=== PATIENT | female | born 1940 | race Caucasian/White ===

== ENCOUNTER 2020-01-04 17:21 | Emergency (ER) | payer MEDICARE, SELFPAY ==
--- NOTE | ~2020-01-04 | XR_ITS ---
EXAMINATION: XR wrist RT min 3V DATE: 01/04/2020 20:38 INDICATION: Right wrist pain TECHNIQUE: Posteroanterior, ulnar deviation, oblique, and lateral views of the right wrist were obtai raulito. COMPARISON: None available FINDINGS: The bones are osteopenic which limits the sensitivity for fracture however none is seen. Th ere is no dislocation or subluxation. There is moderate osteoarthritis at the first carpometacarpal j oint and first interphalangeal joint. The soft tissues are unremarkable. IMPRESSION: 1. No acute osseous abnormality. Reviewed, dictated and finalized at location A.
--- NOTE | ~2020-01-04 | CT_ITS ---
EXAMINATION: CT brain wo con INDICATION: Headache, head injury COMPARISON: None TECHNIQUE: Standard unenhanced head CT. The dose-length product (DLP) was 605.33 mGy-cm. The mA was a djusted according to patient size. Iterative reconstruction technique was employed. FINDINGS: There is no acute intraparenchymal hemorrhage. No evidence of mass lesion. No evidence of a cute infarction. There is mild periventricular and subcortical hypodensity probably related to small vessel ischemic disease. There is mild prominence of the sulci and ventricles related to cerebral atr ophy. Intracranial calcified cerebral atherosclerosis is noted. There are no extra-axial collections. There is no mass effect or midline shift. The orbits and soft tissues are unremarkable. There is a small right mastoid effusion. The paranasal sinuses are well aerated. There is frontal skull hyperost osis (hyperostosis frontalis interna), a normal variant. IMPRESSION: 1. No acute intracranial abnormality. 2. Age related findings. Reviewed, dictated and finalized at location A.
--- NOTE | ~2020-01-04 | XR_ITS ---
EXAMINATION: XR wrist LT min 3V DATE: 01/04/2020 18:02 INDICATION: Left wrist pain, initial encounter TECHNIQUE: Posteroanterior, ulnar deviation, oblique, and lateral views of the left wrist were obtain ed. COMPARISON: None available FINDINGS: There is an acute, traumatic, closed, comminuted, intra-articular fracture of the distal ra dius. There are approximately 3 mm of anterior displacement of the largest distal fracture fragment r elative to the shaft of the radius. Soft tissue swelling surrounds the fracture. An acute ulnar stylo id avulsion is noted. There is moderate osteoarthritis at the first carpometacarpal joint. IMPRESSION: 1. Comminuted intra-articular fracture of the distal radius, ulnar styloid avulsion. Reviewed, dictated and finalized at location A. IMPRESSION: 1. Comminuted intra-articular fracture of the distal radius, ulnar styloid avul leela.
[2020-01-04 17:29] VITALS: BP 225/96; PULSE 66; RESP 18; TEMP 37; O2SAT 97
[2020-01-04 20:57] VITALS: BP 188/85; PULSE 57; RESP 16; TEMP 37; O2SAT 98
--- NOTE | 2020-01-04 21:09 | ED.UPPEXIN ---
HPI - Extremity Injury (Upper) General Chief Complaint: Extremity Injury, Upper Stated Complaint: left wrist injury Time Seen by Provider: 01/04/20 18:55 Source: patient Mode of arrival: ambulatory Limitations: no limitations History of Present Illness HPI narrative: This is a 79-year-old female that presents the emergency department for left wrist pain after an injury today. Reports she was walking outside and tripped over the pavement and fell forward. Reports left wrist pain and swelling. Also reports a laceration to her lower lip and 2 avulsed teeth. Denies loss of consciousness. Also reports a superficial abrasion to the right wrist. Unsure of her last tetanus vaccine. Denies prodromal symptoms, headache, vision changes, vomiting, numbness or weakness. Related Data Home Medications Medication Instructions Recorded Confirmed aspirin [Aspir-81] 81 mg PO 3XW 08/14/19 08/20/19 atorvastatin 20 mg PO HS 08/14/19 08/20/19 calcium citrate-vitamin D3 3 tablet PO QAM 08/14/19 08/14/19 [Citracal Regular] citalopram 20 mg PO QAM 08/14/19 08/20/19 docusate sodium 100 mg PO HS 08/14/19 08/14/19 estradiol 0.5 mg PO 3XW 08/14/19 08/20/19 fluticasone propionate [Flonase 1 spray INTRANASAL DAILY PRN 08/14/19 08/20/19 Allergy Relief] [id number]-[id number] 149-hyal ac 2 tablet PO DAILY 08/14/19 08/14/19 [Glucos Chond Cplx Advanced] lorazepam 0.5 mg PO HS PRN 08/14/19 08/20/19 losartan 25 mg PO DAILY 08/14/19 08/20/19 melatonin 10 mg PO HS PRN 08/14/19 08/20/19 multivitamin [Multiple Vitamins] 1 tablet PO DAILY 08/14/19 08/20/19 omega 8-jxm-cow-fish oil [Fish Oil] 1 cap PO DAILY 08/14/19 08/20/19 simethicone [Gas-X Extra Strength] 125 mg PO DAILY 08/14/19 08/20/19 Allergies Allergy/AdvReac Type Severity Reaction Status Date / Time Sulfa (Sulfonamide Allergy Mild Rash Verified 01/04/20 20:47 Antibiotics) Review of Systems Review of Systems: Narrative: CONSTITUTIONAL: Denies fever EYES: Denies visual changes GASTROINTESTINAL: Denies vomiting SKIN: Reports lacerations MUSCULOSKELETAL: Reports joint pain, and myalgia. NEUROLOGIC: Denies headache, numbness, or weakness. All systems reviewed & are unremarkable except as noted in HPI and below PMFSH Past Medical History Medical History (Updated 01/04/20 @ 21:20 by Nati Forrester PA-C) Anxiety Hyperlipidemia Hypertension Exam Narrative: Exam Narrative: GENERAL: Elderly, well-nourished, and in no acute distress. HEAD: Normocephalic. Lower lip with 2 small (0.5cm), superficial lacerations EYES: PERRLA and EOMI. ENT: Nares clear, no rhinorrhea or epistaxis. Mucous membranes moist. Oropharynx without tonsillar hypertrophy exudate or other lesions. Bilateral TMs pearly maradiaga non-bulging. Teeth number 6 and 7 avulsed. 7 appears to have been a false tooth NECK: Supple. No adenopathy or masses. No midline spinal tenderness CHEST: Clear to auscultation. No respiratory distress. No wheezes rales or rhonchi HEART: Regular rate and rhythm. No murmur heard. Normal peripheral pulses. BACK: No midline spinal tenderness EXTREMITIES: Normal range of motion. Left wrist with moderate edema. Right wrist with superficial abrasions to the palmar surface SKIN: Warm, dry, no rash. NEURO: No focal deficits. Alert and oriented x3. Cranial nerves II through XII grossly intact PSYCH: Normal mood and affect Course Consultations Consultation #1: Spoke with Dr. Cox about patient and work-up will follow-up in clinic. Date: 01/04/20 Time: 21:15 Vital Signs Vital signs: Vital Signs Temperature 98.6 F 01/04/20 17:29 Pulse Rate 66 01/04/20 17:29 Respiratory Rate 18 01/04/20 17:29 Blood Pressure 225/96 H 01/04/20 17:29 Pulse Oximetry 97 01/04/20 17:29 Temperature 98.6 F 01/04/20 17:29 Pulse Rate 66 01/04/20 17:29 Respiratory Rate 18 01/04/20 17:29 Blood Pressure 225/96 H 01/04/20 17:29 Pulse Oximetry 97 01/04/20 17:29 Procedures Orthopedic Spli
[2020-01-04] MEDS: TETANUS,DIPHTHERIA,AC PERTUSSIS ADULT (0.5 ML) BOOSTRIX IM (21:37)
== END 2020-01-04 21:44 | disposition home or self-care (01) ==
PROVIDERS: Emergency Provider Emergency Medicine
DX: S52.572A Other intraarticular fracture of lower end of left radius, initial encounter for closed fracture (principal); S52.612A Displaced fracture of left ulna styloid process, initial encounter for closed fracture; F41.9 Anxiety disorder, unspecified; E78.5 Hyperlipidemia, unspecified; I10 Essential (primary) hypertension; Z79.82 Long term (current) use of aspirin; Z23 Encounter for immunization
CPT/HCPCS: 29125; 70450; 73110; 90471; 90715; 99284; A9270

== ENCOUNTER 2020-01-06 18:03 | Emergency (ER) | payer MEDICARE, SELFPAY ==
[2020-01-06 18:22] VITALS: BP 156/64; PULSE 66; RESP 16; TEMP 37; O2SAT 98
--- NOTE | 2020-01-06 18:26 | ED.GENADULT ---
HPI - General Adult General Chief complaint: Extremity Injury, Upper <LENA Brand Last Filed: 01/06/20 18:29> Stated complaint: L ARM PAIN/SWELLING +WRIST FRACTURE <LENA Brand Last Filed: 01/06/20 18:29> Time Seen by Provider: 01/06/20 18:25 <LENA Brand Last Filed: 01/06/20 18:29> Source: patient <LENA Brand Last Filed: 01/06/20 18:29> Mode of arrival: ambulatory <LENA Brand Last Filed: 01/06/20 18:29> Limitations: no limitations <LENA Brand Last Filed: 01/06/20 18:29> History of Present Illness HPI narrative: Patient is a 79-year-old female who presents to emergency department for evaluation of left wrist pain and hand swelling patient fractured the wrist on Saturday was splinted and notes that she has developed some swelling in the hand and was concerned patient denies new injury or trauma any loss of feeling or function in the hand that is new or different since the fracture. Patient has no other complaints and is scheduled to see her orthopedist on Saturday <LENA Brand Last Filed: 01/06/20 18:29> Related Data Home medications: Home Medications Medication Instructions Recorded Confirmed aspirin [Aspir-81] 81 mg PO 3XW 08/14/19 08/20/19 atorvastatin 20 mg PO HS 08/14/19 08/20/19 calcium citrate-vitamin D3 3 tablet PO QAM 08/14/19 08/14/19 [Citracal Regular] citalopram 20 mg PO QAM 08/14/19 08/20/19 docusate sodium 100 mg PO HS 08/14/19 08/14/19 estradiol 0.5 mg PO 3XW 08/14/19 08/20/19 fluticasone propionate [Flonase 1 spray INTRANASAL DAILY PRN 08/14/19 08/20/19 Allergy Relief] gsrodheu-wnarn-zeu 149-hyal ac 2 tablet PO DAILY 08/14/19 08/14/19 [Glucos Chond Cplx Advanced] lorazepam 0.5 mg PO HS PRN 08/14/19 08/20/19 losartan 25 mg PO DAILY 08/14/19 08/20/19 melatonin 10 mg PO HS PRN 08/14/19 08/20/19 multivitamin [Multiple Vitamins] 1 tablet PO DAILY 08/14/19 08/20/19 omega 6-sed-txh-fish oil [Fish Oil] 1 cap PO DAILY 08/14/19 08/20/19 simethicone [Gas-X Extra Strength] 125 mg PO DAILY 08/14/19 08/20/19 <Juan F Hope PA-C - Last Filed: 01/06/20 18:29> Allergies/adverse reactions: Allergies Allergy/AdvReac Type Severity Reaction Status Date / Time Sulfa (Sulfonamide Allergy Mild Rash Verified 01/06/20 18:28 Antibiotics) <Juan F Hope PA-C - Last Filed: 01/06/20 18:29> Review of Systems Review of Systems: Narrative: CONSTITUTIONAL: Denies fever, chills, or sweats. SKIN: Positive for bruising and swelling MUSCULOSKELETAL: Positive for left wrist and hand pain NEUROLOGIC: Denies numbness, dizziness, or weakness. <Juan F Hope PA-C - Last Filed: 01/06/20 18:29> [facility] Past Medical History Medical History: Medical History Anxiety Hyperlipidemia Hypertension <Juan F Hope PA-C - Last Filed: 01/06/20 18:29> Social History Social History: Social History Gender identity (if verbalized by the patient): Female <Juan F Hope PA-C - Last Filed: 01/06/20 18:29> Exam Narrative: Exam Narrative: GENERAL: Well-appearing, well-nourished, and in no acute distress. HEAD: Normocephalic, atraumatic. EYES: PERRLA and EOMI. ENT: Nares clear, no rhinorrhea or epistaxis. Mucous membranes moist. EXTREMITIES: Patient with slight swelling and tenderness of the wrist and hand joint status post removal of her splint neurovascularly intact with capillary refill less than 2 seconds SKIN: Warm, dry, no rash. NEURO: No focal deficits. Alert and oriented x3. PSYCH: Normal mood and affect. <Juan F Hope PA-C - Last Filed: 01/06/20 18:29> Course Course Emergency Course: Patient in the room aware of case findings treatment plan and diagnosis agreeing to follow-up with her orthopedist this plan is felt appropriate for
== END 2020-01-06 18:47 | disposition home or self-care (01) ==
PROVIDERS: Emergency Provider Emergency Medicine; PCP Family Medicine
DX: S62.102A Fracture of unspecified carpal bone, left wrist, initial encounter for closed fracture (principal); F41.9 Anxiety disorder, unspecified; I10 Essential (primary) hypertension; E78.5 Hyperlipidemia, unspecified; X58.XXXA Exposure to other specified factors, initial encounter
CPT/HCPCS: 29125; 99284; A4565

== ENCOUNTER 2024-09-08 17:29 | Emergency (ER) | payer MEDICARE, SELFPAY ==
--- NOTE | ~2024-09-08 | CT_ITS ---
EXAMINATION: CT cervical spine wo con DATE: 09/08/2024 19:05 INDICATION: Fall. TECHNIQUE: Computed tomography (CT) of the cervical spine was performed without intravenous contrast. Automated exposure control and iterative reconstruction technique were employed. The dose-length pro duct was 164.78 mGy-cm. COMPARISON: None FINDINGS: There is kyphosis of cervical spine. There is 2 mm anterolisthesis of C4 on C5. Vertebral b saira heights are normal. There is mildly decreased disc height at C2-C3 and C4-C5 and moderately decre ased disc height at C5-C6 and C6-C7. The following disc levels are specifically discussed: C2-C3: There is mild left uncovertebral joint osteoarthritis. There is severe left facet joint osteoa rthritis. There is ankylosis of right facet joint with moderate hypertrophy. There is mild bilateral neural foraminal stenosis. There is no central canal stenosis. C3-C4: There is mild left uncovertebral joint osteoarthritis. There is severe bilateral facet joint o steoarthritis. There is mild bilateral neural foraminal stenosis. There is mild central canal stenosi s. C4-C5: There is mild bilateral uncovertebral joint osteoarthritis. There is mild right and severe lef t facet joint osteoarthritis. There is mild left neural foraminal stenosis. There is mild central can al stenosis. C5-C6: There is severe right and moderate left uncovertebral joint osteoarthritis. There is severe bi lateral facet joint osteoarthritis. There is mild right neural foraminal stenosis. There is mild cent ral canal stenosis. C6-C7: There is mild right and severe left uncovertebral joint osteoarthritis. There is moderate bila teral facet joint osteoarthritis. There is mild bilateral neural foraminal stenosis. There is mild ce ntral canal stenosis. C7-T1: There is no uncovertebral joint osteoarthritis. There is severe right and mild left facet join t osteoarthritis. There is mild right neural foraminal stenosis. There is no central canal stenosis. IMPRESSION: 1. No fracture. 2. Moderate cervical spondylosis. Reviewed, dictated and finalized at location A. [employer]
--- NOTE | ~2024-09-08 | CT_ITS ---
EXAMINATION: CT brain wo con DATE: 09/08/2024 19:05 INDICATION: Fall. TECHNIQUE: Computed tomography (CT) of the head was performed without intravenous contrast. The mA wa s adjusted according to patient size. Iterative reconstruction technique was employed. The dose-lengt h product was 605.33 mGy-cm. COMPARISON: Head CT 01/04/2020 FINDINGS: There are scattered areas of low attenuation in the cerebral white matter. There is no intr acranial hemorrhage, acute infarction, or abnormal intracranial mass lesion. The ventricles are deyanira l in size. There is mild mucosal thickening in the paranasal sinuses. There are likely changes of ocu lar lens replacement surgeries. There is a small right mastoid effusion. IMPRESSION: 1. Stable moderate nonspecific cerebral white matter disease, which likely represents chronic small v essel ischemic disease. Reviewed, dictated and finalized at location A. RE D' IMPRESSION: 1. Stable moderate nonspecific cerebral white matter disease, which likely repr esents chronic small vessel ischemic disease.
[2024-09-08 17:32] VITALS: BP 177/69; PULSE 71; RESP 20; TEMP 36.4; O2SAT 100
--- OUTSIDE RECORDS SUMMARY | 2024-09-08 17:32 | XMS_ITS | Data Portability ---
Author Organization [place] [facility], Main Office Address [address] [place] [address] Care Team Providers Care Reprographics Technician Name Role Phone CAMILLA CIRO Primary Care Provider SAMPSONYUEEW Referring Provider Assessment Encounter Date Assessment Date Assessment LastModified by Organization Details LastModified Time 03/20/2023 03/20/2023 HPI: Patient returns. It has been over a year and half since we have seen her for her left knee. Last several months has got little bit more sore. Chief complaint is that if she sits for longer periods of time when she gets up it is little bit difficult to straighten the knee out. It does take her a little bit before she is comfortable walking. She has not severe pain with ambulation. She does not decrease activities avoid activities due to the knee. She has been noticing a little bit more symptoms in the knee. She had cortisone injection in June of 2021 and wished to have another 1 today. Physical exam: 82-year-old female very alert pleasant. She appears younger than her stated age. She has a trace effusion in the left knee. She has a mild varus alignment. Range of motion is from 0-135 degrees. Mild tenderness over the medial joint line to palpation. No swelling in either lower extremity. No pain patellofemoral grind. Hip range of motion is full without discomfort. No lateral joint line tenderness. After ChloraPrep was used on skin 20 mg Kenalog and 3 cc of 0.5% ropivacaine was injected into the left knee. Risk infection discussed. Impression: 82-year-old female who has severe medial compartment osteoarthritis in left knee. Her symptoms overall are mild. She had cortisone injection in June of 2021 and wished to have another 1 today. A reminder she can repeat these often as every 3 months. She will keep that in mind. She will call when she feels she needs additional injection. 20 minutes was spent in treatment patient more half of this in [id number] conversation [email or web address] Not available 03/20/2023 16:13:00 Plan of Treatment Reminders Order Date Submit Date Provider Last Modified By Organization Details Last Modified Time Details Appointments None recorded. Lab None recorded. Referral None recorded. Procedures injection/a spiration joint/bursa (PROC) - in office procedure, administere d by provider 2022 023 In-Office Order, Internal Use Only DO Not Attach Compendium DO Not Attach Compendium, Do Not Delete/merge, [id number] 15:44:49 Surgeries None recorded. Imaging XR, knee 2022 023 [email or web address] [facility], [address], [place], [address], 3 16:13:36 Medication Orders Kenalog 10 mg/mL suspension for injection [address]/[facility] [id number], [address] [place], [address], 3 16:13:36 ropivacaine (PF) 5 mg/mL (0.5 %) injection solution [id number], [address] [place], [address], 3 16:13:36 Patient TargetsNo targets recorded. Patient InstructionsNo instructions recorded. Reason for Referral None Reported. Results Created Date Observation Date Name Description Value Unit Range Abnormal Flag Note LastModifiedBy Organization Detail LastModifiedTime 07/03/20 21 XR, knee No observ ation record ed. [id number] [facility] [place] [address], [place], [address], 10/10/2022 14:11:33 03/20/20 23 XR, knee No observ ation record ed. [email or web address] [facility] [place] [address], [place], [address], 03/20/2023 16:09:51 Result Notes None recorded. Problems Name Problem SNOMED Code Status Onset Date Resolution Date Notes Provider Name and Address Organization Details Recorded Time Osteoarthr itis of knee 785336410 Active Not Available [facility] 3 14:09:34 Osteoarthr itis 158394007 Active Not Available [facility] 3 14:09:34 Pain of left knee joint 1675535226640 07 Active 2022 SCOOBY Esteves, [place] - [facility] [employer] [facility] 15:03:53 Problem Notes None recorded. Procedures Surgical History Date Name Laterality Status Provider Name and Address Organization Details Recorded Time procedure on fallopian tube completed Not Available [facility] 10/10/2022 14:09:09 Hysterectomy completed Not Available [facility] 10/10[facility] 14:09:09 procedure on wrist completed Not Available [facility] 10/10/2022 14:09:09 Imaging Results Imaging Date Name Status LastModified by Organiz ation Details LastModified Time 07/03/2021 XR, knee completed [id number] [facility] [place] [address], [place], [address], 10/10/2022 14:11:33 03/20/2023 XR, knee completed [email or web address] [facility] [place] [address], [place], [address], 03/20/2023 16:09:51 Procedure Notes None recorded. Medical Equipment None Reported. Allergies Allergen ID Allergen Name Allergen Category Reaction Reaction Severity Criticality Documentation Date Start Date Code Code System Note Provider Name and Address Organization Details Recorded Time 36059 Substance with sulfonami de structure and antibacte rial mechanism of action (substanc e) medicatio n Not available Not available Not available 10/10/2022 58538 8003 SNOMED Not Available [facility] 3 14:11:31 Medications Name Sig Start Date Stop Date Status Note LastModified by Organization Details LastModified Time tolterodine ER 2 mg capsule,ext ended release 24 hr 07/24 completed Not Available Not Available Not Available amoxicillin 500 mg capsule TAKE 4 CAPSULES BY MOUTH 1 HOUR PRIOR TO DENTAL APPOINTME NT active Not Available Not Available No t Available atorvastati n 20 mg tablet TAKE 1 TABLET BY MOUTH EVERY DAY active Not Available Not Available No t Available lisinopril 20 mg-hydrochl orothiazide 12.5 mg tablet TAKE 1 TABLET BY MOUTH TWICE A DAY 07/03 completed Not Available Not Available Not Available azithromyci n 250 mg tablet 07/03 completed Not Available Not Available Not Available fluconazole 150 mg tablet active Not Available Not Available Not Available tolterodine ER 4 mg capsule,ext ended release 24 hr TAKE ONE CAPSULE BY MOUTH EVERY DAY 07/24 completed Not Available Not Available Not Available hydrocodone 5 mg-acetamin ophen 325 mg tablet 07/03 completed Not Available Not Available Not Available sertraline 100 mg tablet TAKE 1 TABLET BY MOUTH EVERY DAY active Not Available Not Available No t Available clindamycin HCl 150 mg capsule 07/24 completed Not Available Not Available Not Available fexofenadin e 180 mg tablet TAKE 1 TABLET BY MOUTH EVERY DAY active Not Available Not Available No t Available simvastatin 40 mg tablet TAKE 1 TABLET BY MOUTH EVERYDAY AT BEDTIME 07/03 completed Not Available Not Available Not Available amoxicillin 875 mg tablet 07/24 completed Not Available Not Available Not Available citalopram 20 mg tablet TAKE 1 TABLET BY MOUTH EVERY DAY 07/03 completed Not Available Not Available Not Available lorazepam 0.5 mg tablet TAKE 1 TABLET BY MOUTH EVERY DAY AT BEDTIME NEEDED active Not Available Not Available No t Available Kenalog 10 mg/mL suspension for injection in office 2022 active [facility]: [phone] Not Available Not Available Not Available cephalexin 500 mg capsule TAKE 1 CAPSULE BY MOUTH EVERY 8 HOURS FOR 10 DAYS active Not Available Not Available No t Available montelukast 10 mg tablet 07/24 completed Not Available Not Available Not Available hydrochloro thiazide 25 mg tablet TAKE 1 TABLET BY MOUTH EVERY DAY active Not Available Not Available No t Available estradiol 0.5 mg tablet 07/03 completed Not Available Not Available Not Available methylpredn isolone 4 mg tablets in a dose pack TAKE 6 TABLETS ON DAY 1 DIRECTED ON PACKAGE AND DECREASE BY 1 TAB EACH DAY FOR A TOTAL OF 6 DAYS active Not Available Not Available No t Available oxybutynin chloride 5 mg tablet 07/24 completed Not Available Not Available Not Available losartan 100 mg tablet TAKE 1 TABLET BY MOUTH EVERY DAY active Not Available Not Available No t Available fluticasone propionate 50 mcg/actuati on nasal spray,suspe nsion SPRAY 1 SPRAY INTO EACH NOSTRIL EVERY DAY active Not Available Not Available No t Available sertraline 50 mg tablet 07/03 completed Not Available Not Available Not Available naproxen 500 mg tablet 07/24 completed Not Available Not Available Not Available amoxicillin 500 mg-potassiu m clavulanate 125 mg tablet TK 1 T PO Q 8 HOURS UNTIL GONE 07/24 completed Not Available Not Available Not Available nitrofurant oin monohydrate /macrocryst als 100 mg capsule TAKE 1 CAPSULE BY MOUTH TWICE A DAY active Not Available Not Available No t Available solifenacin 5 mg tablet TAKE 1 TABLET BY MOUTH EVERY DAY active Not Available Not Available No t Available chlorhexidi ne gluconate 0.12 % mouthwash 07/24 completed Not Available Not Available Not Available melatonin 2020 active Not Available Not Available Not Avai lable aspirin 2020 active Not Available Not Available Not Avai lable multivitami n 2020 active Not Available Not Available Not Avai lable lidocaine (PF) 10 mg/mL (1 %) injection solution In office injection administe red by the provider active [facility]: [phone] Not Available Not Available Not Available GaviLyte-N 420 gram oral solution 07/03 completed Not Available Not Available Not Available ropivacaine (PF) 5 mg/mL (0.5 %) injection solution in office 2022 active [facility] [phone] Not Available Not Available Not Available Fluzone High-Dose (PF) 180 mcg/0.5 mL intramuscul ar syringe TO BE ADMINISTE RED BY PHARMACIS T FOR IMMUNIZAT ION 07/24 completed Not Available Not Available Not Available Shingrix (PF) 50 mcg/0.5 mL intramuscul ar suspension, kit 07/03 completed Not Available Not Available Not Available Fluzone High-Dose (PF) 180 mcg/0.5 mL intramuscul ar syringe TO BE ADMINISTE RED BY PHARMACIS T FOR IMMUNIZAT ION 07/24 completed Not Available Not Available Not Available Fluzone High-Dose (PF) 180 mcg/0.5 mL intramuscul ar syringe TO BE ADMINISTE RED BY PHARMACIS T FOR IMMUNIZAT ION 07/03 completed Not Available Not Available Not Available Vitals Date Recorded Body mass index (BMI) Body height Body weight Provider Name and Address Organization Details Last Updated DateTime 07/03/2021 27.9 kg/m2 149.86 cm 98268.75 g Not Available [facility] 10/10/2022 14:09:15 Date Recorded Body height Body mass index (BMI) Body weight Provider Name and Address Organization Details Last Updated DateTime 03/20/2023 149.86 cm 27.7 kg/m2 22694.15 g SOCOBY Esteves [place] [facility] [employer] [facility] 03/20/2023 15:08:13 Social History Question Answer Notes LastModified by Organizat ion Details LastModified Time Tobacco Smoking Status Never Smoker Not Available [facility] 10/10/2022 14:09:06 What Is Your Level Of Alcohol Consumption? Occasional [id number] Information not available 10/10/2022 Sex: Unknown Functional Status None recorded. Mental Status None recorded. Family History Relationship Description Onset Age of this Age Resolved Age Notes LastModified by Organization Details LastModified Time Mother Family history of malignant neoplasm [id number] Not available 10/10/2022 14:09:09 Daughter Hypertensive disorder [id number] Not available 10/10/2022 14:09:09 Medical History Condition Response BLINDNESS N KIDNEY STONES N MRSA N CARPAL TUNNEL SYNDROME N LUNG DISEASE/DISORDER N HISTORY OF DRUG ABUSE N RADIATION / CHEMOTHERAPY N COPD N SPORTS INJURY N ANKLE PAIN N BLOOD DISEASES N SCHIZOPHRENIA N SHINGLES N BOWEL PROBLEMS N SHOULDER PAIN N DEPRESSION (INCLUDING POST ) N STROKE/TIA N KNEE PAIN N ULCERS N BENIGN PROSTATIC HYPERPLASIA N OBESITY N GERD/NAUSEA N ANEURYSM N URINARY/BLADDER/KIDNEY PROBLEMS Y CORONARY ARTERY DISEASE (CAD) N ADDICTION CONCERNS N USE OF BLOOD THINNERS N SKIN PROBLEMS N EMPHYSEMA N MUSCLE,JOINT OR BONE PROBLEMS N DVT N STOMACH ULCERS N BLOOD CLOTS N USE OF NSAIDS N CONCUSSION OR SPINAL TRAUMA N NEUROPATHY N AIDS/HIV N FRACTURES N ELBOW PAIN N HYPERTENSION Y TOURETTE'S N ANXIETY DISORDER N Metal allergy N BLOOD TRANSFUSION N ANEMIA/BLOOD DISORDER N BIPOLAR DISORDER N BRONCHITIS N OSTEOARTHRITIS N TUBERCULOSIS N FOOT PROBLEM N HEART VALVE DISORDERS N ALLERGIES/HAYFEVER N SOFT TISSUE INJURY N INFECTIOUS DISEASE N HEART ARRHYTHMIA N INSOMNIA N RHEUMATOID ARTHRITIS N HIGH CHOLESTEROL / HYPERLIPIDEMIA N EDEMA N CHRONIC PAIN SYNDROME N CAROTID BLOCKAGE N BACK / NECK PROBLEMS N HAVE YOU BEEN HOSPITALIZED OR SEEN IN [facility] IN THE PAST YEAR ? N BURSITIS N HERNIATED DISC N DIALYSIS N FIBROMYALGIA N OSTEOPOROSIS N ARTHRITIS Y NO SIGNIFICANT PAST MEDICAL HISTORY N PERIPHERAL NEUROPATHY N DIABETES, TYPE N HEARTBURN / REFLUX N HEPATITIS / LIVER DISEASE N GOUT N SLEEP DISORDER N ALZHEIMER'S DISEASE N HERPES N SEIZURES/EPILEPSY N HEADACHES/MIGRAINES N VASCULAR DISEASE N HIP PAIN N Blood Disorder N DIZZINESS N HEAD TRAUMA OR INJURY N HEART DISEASE/HEART PROBLEMS N MULTIPLE SCLEROSIS N CARDIAC ARRHYTHMIA N CANCER: SPECIFY N ANESTHESIA COMPLICATIONS N ATRIAL FIBRILLATION N AUTOIMMUNE DISEASE N Gynecological HistoryNo gynecological history recorded. Obstetrics History GPAL:G 0 P 0 0 0 0 Past Encounters Encounter ID Performer Location Encounter Start Date Encounter Closed Date Diagnosis/Indication Diagnosis SNOMED-CT Code Diagnosis ICD10 Code Diagnosis Note [id number] [facility] [place] [address] [address] 07/03/2021 00:00:00 07/03/2021 15:40:10 [id number] MARILYN Flor [facility] [place] [address] [facility] [address] [address] 03/20/2023 14:58:49 03/20/2023 16:06:08 Pain of left knee joint [id number] 19481 M25.562 Health Concerns Section Related Observation LastModified by Organization Detai ls LastModified Time None Recorded Concern Status LastModified by Organization Details LastModified Time None Recorded Advance Directives Directive None Recorded Payers Encounter Date Sequence Insurance Name Policy Number Policy Salas Covered Member ID Salas Member ID Guarantor Name 03/20/2023 1 [place] Cl Blount [id number] Cl Blount 03/20/2023 2 [employer] SU[employer] - [employer] (MEDICARE SUPPLEMENT) Cl Blount [id number] Cl Blount OBGyn Episode No OBEpisode recorded.
--- OUTSIDE RECORDS SUMMARY | 2024-09-08 17:32 | XMS_ITS | Clinical Summary ---
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 Name Role Phone Korey Coleman MD Primary Care Provider + Allergies Active Allergy Reactions Criticality Noted Date Comments Sulfa (Sulfonamide Antibiotics) Rash Medium Medications LORazepam (ATIVAN) 0.5 mg tablet 0.5 mg Active aspirin 81 mg enteric coated tablet Take 81 mg by mouth every morning Stopped two weeks ago Active atorvastatin (LIPITOR) 20 mg tablet Take 20 mg by mouth nightly Active losartan (COZAAR) 25 mg tablet 25 mg daily Active acetaminophen (TYLENOL) 500 mg tablet Take 500 mg by mouth every 6 (six) hours as needed for pain Active ibuprofen (ADVIL,MOTRIN) 400 mg tablet Take 600 mg by mouth every 6 (six) hours as needed for pain Stopped taking about 5 days ago Active estradioL (ESTRACE) 0.5 mg tablet estradiol 0.5 mg tablet TAKE 1 TABLET BY MOUTH EVERY OTHER DAY Active sertraline (ZOLOFT) 50 mg tablet Take 50 mg by mouth daily 1 Active cephalexin (KEFLEX) 500 mg capsule TAKE 1 CAPSULE BY MOUTH EVERY 8 HOURS FOR 10 DAYS 2 Active fluconazole (DIFLUCAN) 150 mg tablet fluconazole 150 mg tablet Active hydroCHLOROthia zide (HYDRODIURIL) 25 mg tablet Take 25 mg by mouth daily 2 Active methylPREDNISol one (MEDROL DOSEPACK) 4 mg Dosepack TAKE 6 TABLETS ON DAY 1 DIRECTED ON PACKAGE AND DECREASE BY 1 TAB EACH DAY FOR A TOTAL OF 6 DAYS 2 Active Hospital, Clinic, or Other Facility Administered Medication Ordered Dose Route Frequency Start Date End Date Status [facility] atorvastatin (rrAD) tablet 20 mgIndications:Research study patient 20 mg oral Daily 02/06/2019 Active [facility] losartan (rrAD) tablet 25 mgIndications:Research study patient 25 mg oral Daily 02/06/2019 Active [facility] losartan (rrAD) tablet 25 mgIndications:Research study patient 25 mg oral Daily 03/12/2019 Active [facility] atorvastatin (rrAD) tablet 20 mgIndications:Research study patient 20 mg oral Daily 03/12/2019 Active [facility] atorvastatin (rrAD) tablet 20 mgIndications:Research study patient 20 mg oral Daily 04/15/2019 Active [facility] losartan (rrAD) tablet 25 mgIndications:Research study patient 25 mg oral Daily 04/15/2019 Active [facility] atorvastatin (rrAD) tablet 20 mgIndications:Research study patient 20 mg oral Daily 05/06/2019 Active [facility] losartan (rrAD) tablet 25 mgIndications:Research study patient 25 mg oral Daily 05/06/2019 Active [facility] losartan (rrAD) tablet 25 mgIndications:Research study patient 25 mg oral Daily 08/14/2019 Active [facility] atorvastatin (rrAD) tablet 20 mgIndications:Research study patient 20 mg oral Daily 08/14/2019 Active [facility] losartan (rrAD) tablet 25 mgIndications:Research study patient 25 mg oral Daily 10/28/2019 Active [facility] atorvastatin (rrAD) tablet 20 mgIndications:Research study patient 20 mg oral Daily 10/28/2019 Active [facility] losartan (rrAD) tablet 25 mgIndications:Research study patient 25 mg oral Daily 12/22/2019 Active [facility] atorvastatin (rrAD) tablet 20 mgIndications:Research study patient 20 mg oral Daily 12/22/2019 Active [facility] losartan (rrAD) tablet 25 mgIndications:Research study patient 25 mg oral Daily 03/17/2020 Active [facility] atorvastatin (rrAD) tablet 20 mgIndications:Research study patient 20 mg oral Daily 03/17/2020 Active [facility] losartan (rrAD) tablet 25 mgIndications:Research study patient 25 mg oral Daily 05/31/2020 Active [facility] atorvastatin (rrAD) tablet 20 mgIndications:Research study patient 20 mg oral Daily 05/31/2020 Active [facility] losartan (rrAD) tablet 50 mgIndications:Research study patient 50 mg oral Daily 08/18/2020 Active [facility] atorvastatin (rrAD) tablet 20 mgIndications:Research study patient 20 mg oral Daily 08/18/2020 Active [facility] losartan (rrAD) tablet 100 mgIndications:Research study patient 100 mg oral Daily 10/03/2020 Active [facility] losartan (rrAD) tablet 100 mgIndications:Research study patient 100 mg oral Daily 12/27/2020 Active [facility] atorvastatin (rrAD) tablet 20 mgIndications:Research study patient 20 mg oral Daily 12/27/2020 Active [facility] losartan (rrAD) tablet 100 mgIndications:Research study patient 100 mg oral Daily 02/17/2021 Active [facility] atorvastatin (rrAD) tablet 20 mgIndications:Research study patient 20 mg oral Daily 02/17/2021 Active Active Problems Problem Noted Date Diagnosed Date Snoring 03/02/2021 Assessment & Plan (03/02/2021 1:59 PM CDT): The patient has primary snoring. She will continue to try to maintain an adequate weight and regular activities of daily living. Primary insomnia 11/28/2020 Assessment & Plan (11/28/2020 11:26 AM CDT): The patient sometimes has difficulty re- initiating sleep because she is waking up with 4 episodes of nocturia most nights. REM sleep behavior disorder 11/28/2020 Assessment & Plan (03/02/2021 2:01 PM CDT): There was only 18 minutes of REM sleep during the nocturnal PSG and there is no evidence of REM sleep without atonia. The patient did fall out of bed 1 time in the last 6 months but has been using melatonin. She recently ran out of melatonin and will restart melatonin at 5 mg at bedtime. I did inform her of the possibility of developing neurodegenerative disorders if indeed she does have RBD. However, I saw no evidence of REM sleep without atonia on the sleep study. She will follow-up here in 6 months. Closed Keane's fracture of left radius 0 Overview (01/12/2020): Added automatically from request for surgery [id number] Sensorineural hearing loss ( SNHL) of left ear with restricted hearing of right ear 07/07/2018 Unspecified urinary incontinence 09/23/2015 Breast lump 07/26/2014 Essential hypertension 07/26/2014 Malaise and fatigue 02/01/2014 Single major depressive episode, moderate 2012 Benign essential hypertension 07/17/2012 Family history of colonic polyps 07/17/2012 Generalized anxiety disorder 07/17/2012 Counseling for estrogen replacement therapy 01/2012 Hyperlipidemia 07/17/2012 Localized, primary osteoarthritis 07/17/2012 Osteoarthritis of knee 07/17/2012 Urinary urgency 07/17/2012 Hormone replacement therapy 07/17/2012 Immunizations Name Administration Dates Next Due Pfizer SARS-CoV-2 Monovalent Vaccination (12+ Yrs) PURPLE 10/07/2020,09/16/2020 Surgical History Surgery Date Site/Laterality Comments HYSTERECTOMY Hysterectomy - (Added by TW Conv) OOPHORECTOMY Oophorectomy - (Added by TW Conv) CATARACT EXTRACTION Cataract Surgery - (Added by TW Conv) COLONOSCOPY BREAST BIOPSY Right Medical History Medical History Date Comments Personal history of other di seases of the circulatory system History of hypertension - (A dded by TW Conv) Hypertension Arthritis High cholesterol Bladder troubles Hearing trouble Seasonal allergies Anxiety Family History Medical History Relation Name Comments Asthma Brother Heart attack Father Heart disease Father Colon cancer Mother Malignant Neopl asm, Colon - (Added by TW Conv) Asthma Sister 1 Fibromyalgia Sister 1 OCD Sister 2 Anesthesia problems Neg Hx Relation Name Status Comments Brother Alive Father Mother Sister 1 Alive Sister 2 Alive Social History Tobacco Use Types Packs/Day Years Used Date Smoking Tobacco: Never Smokeless Tobacco: Never Alcohol Use Standard Drinks/Week Comments Yes 0 (1 standard drink = 0.6 oz pur e alcohol) rarely Comments No Sex and Gender Information Value Date Recorded Sex Assigned at Not on file 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 Gender Identity Not on file Sexual Orientation Not on file Obstetrics History Para Term AB IAB SAB Ectopic Multiple Livin g Live Births 2 2 2 2 2 Date Outcome GA Total Labor Labor/2nd/3rd Weight Sex Type Anes PTL Bri A1 A5 Name Clin Term Living Term Living Last Filed Vital Signs Vital Sign Reading Time Taken Comments Blood Pressure 130/70 03/02/2021 1:32 PM CDT Pulse 65 03/02/2021 1:32 PM CDT Temperature 36.5 ??C (97.7 ??F) 03/02/2021 1:32 PM CD T Respiratory Rate 16 03/02/2021 1:32 PM CDT Oxygen Saturation 98% 03/02/2021 1:32 PM CDT Inhaled Oxygen Concentration - - Weight 62.6 kg (138 lb) 03/02/2021 1:32 PM CDT Height 157.5 cm (5' 2 ) 03/02/2021 1:32 PM CDT Body Mass Index 25.24 03/02/2021 1:32 PM CDT Plan of Treatment Health Maintenance Due Date Last Done Comments Depression Screening 1942 Hepatitis B Screening 1960 Pneumococcal vaccine 65+ (2 of 2 - PPSV23 or PCV20) 10/08/2017 10/08/2016 Fall Risk Assessment 01/12/2021 01/13/2020 Well Visit 65+ 03/16/2021 03/16/2020 Covid-19 Vaccine (2023-2 5 season) 2024 12/13/2021, 07/07/2021, 10/07/2020, Additional history exists Influenza Vaccine (#1) 2024 , 05/07/2019, 06/06/2018, Additional history exists Osteoporosis Screening-Bone Density Scan 04/23/2025 04/23/2023, 10/05/2020, 04/08/2017 DTaP/Tdap/Td Vaccine (2 - Td or Tdap) 11/06/2028 11/06/2018, 08/08/1998 Zoster Vaccine Completed 10/13/2019, 05/07/2019 Medical Devices Implanted Type Area Regional Sales Leader Device Identifier Shelf Expiration Date Model / Serial / Lot [employer] A-4750.31 Aptus Trilock [id number] 10 Hole Left Distal Volar Radius Narrow - [id number] Implanted:Qty: 1 on 01/13/2020 by Stefan Owen MD at [facility] Left: Radius [employer] A-4750.31 / / [employer] A-5700.12 Aptus 2.5mm 12mm Cortical Screw Bone - [id number] Implanted:Qty: 1 on 01/13/2020 by Stefan Owen MD at [facility] Left: Radius [employer] A-5700.12 / / [employer] A-5750.20 2.5mm 20mm Lock Cortical Screw Bone - [id number] Implanted:Qty: 2 on 01/13/2020 by Stefan Owen MD at [facility] Left: Radius [employer] A-5750.20 / / [employer] A-5700.18 Aptus 2.5mm 18mm Cortical Screw Bone Titanium - [id number] Implanted:Qty: 1 on 01/13/2020 by Stefan Owen MD at [facility] Left: Radius [employer] A-5700.18 / / [employer] A-5750.08 Screw Bone 2.5mm 8mm Lock - [id number] Implanted:Qty: 1 on 01/13/2020 by Stefan Owen MD at [facility] Left: Radius [employer] A-5750.08 / / [employer] A-5750.14 Aptus 2.5mm 14mm Lock Cortical Screw Bone - [id number] Implanted:Qty: 1 on 01/13/2020 by Stefan Owen MD at [facility] Left: Radius [employer] A-5750.14 / / Procedures Procedure Name Priority Date/Time Associated Diagnosis Comments DEXA AXIAL SKELETON BONE DENSITY 1 OR MORE SITES Schedule Routine, Read Routine (OP Routine) 04/23/2023 1:32 PM CDT Menopausal and female climacteric states Encounter for screening for osteoporosis from Last 3 Months or Most Recently Relevant to Health Maintenance Results * Dexa Axial Skeleton Bone Density 1 or 2 Site (04/23/2023 1:32 PM CDT) Anatomical Region Laterality Modality Body N/A Mammography 04/23/2023 2:41 PM CDT Narrative 04/23/2023 2:41 PM CDT EXAM DESCRIPTION: DEXA AXIAL SKELETON BONE DENSITY 1 OR MORE SITES REASON FOR STUDY: 83 y/o ?? year old ??F ??with given history of: ??Postmenopausal status. ??Patient takes vitamin-D and calcium. ??History of prior fracture. ? 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 Maximum height: ??61 ??inches ? Weight: ??130 ??pounds Risk factors: ??Prior fracture COMPARISON: None available FINDINGS: AP LUMBAR SPINE L1-L4: Total BMD is 1.047 g/cm2 T-score is 0.0 LEFT HIP: Total BMD is 0.900 g/cm2 T-score is -0.3 Femoral neck BMD is 0.735 g/cm2 T-score is -1.0 ?? FRAX: FRAX not reported due to T-scores of hip, femoral neck and/or spine being at or above -1.0 (Normal). IMPRESSION: Normal bone mass. REFERENCE: Bone mineral density: ? Normal (T-score above or = -1.0) ? Low bone mass ??(T-score between -1.0 and -2.5) replaces the previously used term osteopenia ? Osteoporosis (T-score = or below -2.5) Medical evaluation for secondary causes of low bone mineral density may be appropriate. FRAX is a World Health Organization validated fracture risk assessment tool that calculates a person's 10 year probability of a major osteoporosis related fracture and hip fracture. ??According to the National Osteoporosis Foundation guidelines, postmenopausal women and men age 50 or older with low bone mass and a 10 year probability of a major osteoporosis related fracture = or greater than 20% or a 10 year probability of a hip fracture = or greater than 3% should be considered for treatment. For further information, including treatment recommendations, please refer to the 2019 ISCD Official Positions (http://www.iscd.org) and the NOF's Clinician's Guide to Prevention and Treatment of Osteoporosis (http://www.nof.org/professionals/clinical-guidelines) THIS IS AN ELECTRONICALLY VERIFIED FINAL REPORT 04/23/2023 2:41 PM - Electronically signed by ??Mirna Isbell M.D. TW: TW D: ??04/23/2023 2:41 PM T: ??04/23/2023 2:41 PM Report ID: [id number] Reading Location: ??[id number] Procedure Note Mirna Isbell MD - 04/23/2023 EXAM DESCRIPTION: DEXA AXIAL SKELETON BONE DENSITY 1 OR MORE SITES REASON FOR STUDY: 83 y/o year old F with given history of:Postmenopausal status. Patient takes vitamin-D and calcium. History of prior fracture. 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 IMPRESSION: Normal bone mass. REFERENCE: Bone mineral density: Normal (T-score above or = -1.0) Low bone mass (T-score between -1.0 and -2.5) replaces thepreviously used term osteopenia Osteoporosis (T-score = or below -2.5) Medical evaluation for secondary causes of low bone mineral density may be appropriate. FRAX is a World Health Organization validated fracture risk assessmenttool that calculates a person's 10 year probability of a major osteoporosisrelated fracture and hip fracture. According to the National OsteoporosisFoundation guidelines, postmenopausal women and men age 50 or older with low bonemass and a 10 year probability of a major osteoporosis related fracture = or greater than 20% or a 10 year probability of a hip fracture = or greaterthan 3% should be considered for treatment. For further information, including treatment recommendations, please referto the 2019 ISCD Official Positions (http://www.iscd.org) and the NOF's Clinician's Guide to Prevention and Treatment of Osteoporosis (http://www.nof.org/professionals/clinical-guidelines) THIS IS AN ELECTRONICALLY VERIFIED FINAL REPORT 04/23/2023 2:41 PM - Electronically signed by Mirna Isbell M.D. TW: TW Report ID: [id number] Reading Location: [place] [address] Korey Coleman MD IMG DXA PROCEDURES Final Result from Last 3 Months or Most Recently Relevant to Health Maintenance Insurance MEDICARE [facility] MEDICARE SUPPLEMENT INSURANCE [place] [id number] MEDICARE [facility] [place] [phone] MEDICARE [facility] MEDICARE SUPPLEMENT INSURANCE Care Teams Steel Estimator Relationship Specialty Start Date End Date Korey Coleman MD [address] [address] PCP - General Internal Medicine 12/26/22
--- OUTSIDE RECORDS SUMMARY | 2024-09-08 17:32 | XMS_ITS | Clinical Summary ---
Author Organization [facility] Address [address] [place] [address]. [place], [place] [id number] [place] [id number] Care Team Providers Care Medical Billing Service Name Role Phone Unavailable Primary Care Provider Unavailabl e Social History Tobacco Use Types Packs/Day Years Used Date Smoking Tobacco: Never Assessed Comments Unknown Sex and Gender Information Value Date Recorded Sex Assigned at Not on file Legal Sex Female 4:45 PM CDT Gender Identity Not on file Sexual Orientation Not on file Plan of Treatment Health Maintenance Due Date Last Done Comments DTaP, Tdap and Td Vaccines ( 1 - Tdap) 1961 Zoster Vaccines (1 of 2) 1992 Dexa Scan (General) 2007 Pneumococcal Vaccine: 65+ Ye ars (1 of 1 - PCV) 2007 RSV Immunization or 60+ Years (1 - 1-dose 75+ series) 2017 COVID-19 Vaccine (2023-2 5 season) 2024 Influenza Adult (#1) 2024 Meningococcal B Vaccine Aged Out No l onger eligible based on patient's age to complete this topic Meningococcal Vaccine Aged Out No ronaldo garo eligible based on patient's age to complete this topic RSV Immunizations Under 20 Months Aged Out No longer eligible based on patient's age to complete this topic
--- OUTSIDE RECORDS SUMMARY | 2024-09-08 17:32 | XMS_ITS | Data Portability ---
Author Organization [facility] Address [address] [place] [address] Assessment No assessment recorded. Plan of Treatment Reminders Order Date Submit Date Provider Last Modified By Organization Details Last Modified Time Details Appointments ANY 15 2024 10:30A M DIEUDONNE Landin Not available Not available Not available ANY 2024 10:00A M DIEUDONNE Landin Not available Not available Not available Lab urinalysi s, dipstick 2023 024 [email or web address] In-Office Order, Internal Use Only DO Not Attach Compendium DO Not Attach Compendium, Do Not Delete/merge, [id number] 11/01/2023 15:22:37 culture, urine [address], [address], [place], [address], 11/02/2023 17:21:00 magnesium , serum or plasma 2023 024 [facility], [address], [place], [address], 04/22/2024 02:34:49 BMP, serum or plasma 2023 024 [facility], [address], [place], [address], 04/22/2024 02:34:50 amylase, serum or plasma 2023 024 [facility], [address], [place], [address], 08/01/2024 09:01:43 lipase, serum or plasma 2023 024 [facility], [address], [place], [address], 08/01/2024 09:01:44 CMP, serum or plasma 2023 024 [facility], [address], [place], [address], 08/01/2024 09:01:40 CBC w/ auto diff 2023 024 [facility], [address], [place], [address], 08/01/2024 09:01:[address] referral 2023 024 [facility], Formerly [facility], [id number] [facility] [address] , [place], [address], 01/22/2024 16:17:32 Procedures cerumen removal using irrigatio n (PROC) 2023 024 [facility] Not available 01/14/2024 16:20:47 Surgeries None recorded. Imaging None recorded. Medication Orders phenazopy ridine 200 mg tablet 2023 024 [facility]/Pharmacy #[id number], [address], [place], [address], 04/16/2024 10:05:13 nitrofura ntoin monohydra te/macroc rystals 100 mg capsule 2023 024 [facility]/Pharmacy #2510, [address] [place], [address], 04/16/2024 10:05:06 lorazepam 0.5 mg tablet 2023 024 [facility]/Pharmacy #2510, [address] [place], [address], 07/31/2024 11:19:22 lorazepam 0.5 mg tablet 2023 0[email or web address] [address] [place], [address], 07/31/2024 11:19:22 hydroxyzi ne HCl 25 mg tablet 2023 024 [facility] [address] [place], [address], 07/31/2024 11:16:38 amlodipin e 2.5 mg tablet 2023 024 [facility] [address] [place], [address], 07/31/2024 11:08:10 amlodipin e 5 mg tablet 2024 025 [facility] [address] [place], [address], 08/14/2024 15:33:12 Patient TargetsNo targets recorded. Patient Instructions Encounter Date Encounter Id Patient Instructions Last Modified By Organization Details Last Modified Time 11/01/2023 [id number] painful urinatio n (dysuria): care instructions [email or web address] Not available 11/01/2023 15:22:34 Cl, - Thank ez suggs for your visit - Continue your current medications - Use medications as directed - Please call if not improving after 48 hours - We will call if culture indicates a change in antibiotic - Call with any concerns [email or web address] Not available 11/01/2023 15:23:37 01/14/2024 [id number] hearing loss: care instructions [email or web address] Not available 01/14/2024 14:42:52 Cl, Maci Thank ez suggs for your visit - I have placed referral to audiology - they should contact you in the next 2 weeks to schedule a visit -- if you don't hear from them, call them at the number on the paper I have provided - Call with any concerns [email or web address] Not available 01/14/2024 14:44:15 04/16/2024 [id number] learning about healthy weight [email or web address] Not available 04/16/2024 11:59:17 high cholesterol : care instructions [email or web address] Not available 04/16/2024 11:59:17 learning about high blood pressure [email or web address] Not available 04/16/2024 11:59:17 Cl, - Thank ez suggs for your visit - Continue your current medications - Your results will be available on the portal with any recommendations, or we will call you with them - Return to clinic in 6 months, AND as needed. - Call with any concerns Immunization recommendations: - Yearly influenza immunization is recommended, and typically available beginning in mid-April - I highly encourage all who are able to complete an initial immunization series against COVID19, along with boosters as indicated by age or medical history - Consider obtaining an RSV immunization. For more information: https://www.cdc.g ov/vaccines/vpd/r sv/index.html Exercise recommendations:? ? ? - It is recommended that you do daily aerobic (walking, bicycling, swimming) and resistance exercises (light weight lifting, resistance band stretching) for at least 30 minutes, most days of the week.? ? ? - If you cannot walk, chair exercises for 10-15 minutes a day would help tremendously. - As little as 15-20 minutes exercise, in one or two sessions a day, is still very helpful to manage/improve your weight and overall health Diet recommendations:? ? ? - Eat small portion meals, trying not to consume more than 1800 calories a day. - Try to eat not more than 2 servings of carbs (starches) with your meals. - Avoid soft drinks, including regular sodas, fruit juices, and sweetened tea. Drink water instead. - Eat plenty of green and leafy vegetables, including salads. 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 hearing loss Referring Physician: Korey Coleman, Family Medicine, Encounter Date: 01/14/2024 Results Created Date Observation Date Name Description Value Unit Range Abnormal Flag Note LastModifiedBy Organization Detail LastModifiedTime 10/16/19 24 10/17/2023 LIPID PANEL , STAND LEAH cholesterol, total 145 mg/dL <200 normal Not Available [facility] [address] [address] [place], [address], 10/17/2023 11:12:33 10/16/19 24 10/17/2023 LIPID PANEL , STAND LEAH HDL cholesterol 65 mg/dL > or = 50 normal Not Available [facility] [address] [address] [place], [address], 10/17/2023 11:12:33 10/16/19 24 10/17/2023 LIPID PANEL , STAND LEAH triglyceride s 76 mg/dL <150 normal Not Available [facility] [address] [address] [place], [address], 10/17/2023 11:12:33 10/16/19 24 10/17/2023 LIPID PANEL , STAND LEAH LDL-choleste rol 64 mg/dL _(denver c) normal Refer ence range : <100 Tigre able range <100 mg/dL for prima ry preve ntion ; <70 mg/dL for patie nts with CHD or diabe tic patie nts with > or = 2 CHD risk facto rs. LDL-C is now calcu lated using the Марина n-Hop kins holgeru sukumar n, which is a valid ated novel george ahmadi acy than the Fried savage equat ion in the estim ation of LDL-C . Марина hunter SS et al. LOBITO. 2013; 310(1 9): 2061- 2068 (http ://ed ucati on.Qu Alicia chowInverness Medical Innovationss. com/f aq/FA Q164) Not Available [facility] [address] [address] [address], [place], [address], 10/17/2023 11:12:33 10/16/19 24 10/17/2023 LIPID PANEL , STAND LEAH chol/HDLC ratio 2.2 (calc ) <5.0 normal Not Available [address] [place], [address], 10/17/2023 11:12:33 10/16/19 24 10/17/2023 LIPID PANEL , STAND LEAH non HDL cholesterol 80 mg/dL _(denver c) <130 normal For patie nts with diabe jus plus 1 major ASCVD risk facto r, treat ing to a non-H DL-C goal of <100 mg/dL (LDL- C of <70 mg/dL ) is consi dered a thera peuti c optio n. Not Available [address], [address], 10/17/2023 11:12:33 10/16/19 24 10/17/2023 MAGNE SIUM magnesium 2.2 mg/dL 1.5-2. 5 normal Not Available [address], [address], 10/17/2023 11:12:34 10/16/19 24 10/17/2023 COMPR EHENS RHEA METAB OLIC PANEL glucose 84 mg/dL 65-99 normal Fasti ng refer ence inter corazon Not Available [address], [address], 10/17/2023 11:12:35 10/16/19 24 10/17/2023 COMPR EHENS RHEA METAB OLIC PANEL urea nitrogen (BUN) 16 mg/dL 7-25 normal Not Available [address], [address], 10/17/2023 11:12:35 10/16/19 24 10/17/2023 COMPR EHENS RHEA METAB OLIC PANEL creatinine 0.48 mg/dL 0.60-0 .95 low Not Available [address] [place], [address], 10/17/2023 11:12:35 10/16/19 24 10/17/2023 COMPR EHENS RHEA METAB OLIC PANEL eGFR 95 mL/mi n/1.7 3m2 > or = 60 normal Not Available [address], [address], 10/17/2023 11:12:35 10/16/19 24 10/17/2023 COMPR EHENS RHEA METAB OLIC PANEL BUN/creatini ne ratio 33 (calc ) 6-22 high Not Available [address], [address], 10/17/2023 11:12:35 10/16/19 24 10/17/2023 COMPR EHENS RHEA METAB OLIC PANEL sodium 138 mmol/ L 135-14 6 normal Not Available [address], [address], 10/17/2023 11:12:35 10/16/19 24 10/17/2023 COMPR EHENS RHEA METAB OLIC PANEL potassium 3.6 mmol/ L 3.5-5. 3 normal Not Available [address], [address], 10/17/2023 11:12:35 10/16/19 24 10/17/2023 COMPR EHENS RHEA METAB OLIC PANEL chloride 102 mmol/ L 98-110 normal Not Available [address], [address], 10/17/2023 11:12:35 10/16/19 24 10/17/2023 COMPR EHENS RHEA METAB OLIC PANEL carbon dioxide 29 mmol/ L 20-32 normal Not Available [address], [address], 10/17/2023 11:12:35 10/16/19 24 10/17/2023 COMPR EHENS RHEA METAB OLIC PANEL calcium 9.1 mg/dL 8.6-10 .4 normal Not Available [address], [address], 10/17/2023 11:12:35 10/16/19 24 10/17/2023 COMPR EHENS RHEA METAB OLIC PANEL protein, total 6.5 g/dL 6.1-8. 1 normal Not Available [address], [address], 10/17/2023 11:12:35 10/16/19 24 10/17/2023 COMPR EHENS RHEA METAB OLIC PANEL albumin 4.2 g/dL 3.6-5. 1 normal Not Available [address], [address], 10/17/2023 11:12:35 10/16/19 24 10/17/2023 COMPR EHENS RHEA METAB OLIC PANEL globulin 2.3 g/dL_ (calc ) 1.9-3. 7 normal Not Available [address], [address], 10/17/2023 11:12:35 10/16/19 24 10/17/2023 COMPR EHENS RHEA METAB OLIC PANEL albumin/glob ulin ratio 1.8 (calc ) 1.0-2. 5 normal Not Available [address], [address], 10/17/2023 11:12:35 10/16/19 24 10/17/2023 COMPR EHENS RHEA METAB OLIC PANEL bilirubin, total 0.5 mg/dL 0.2-1. 2 normal Not Available [address], [address], 10/17/2023 11:12:35 10/16/19 24 10/17/2023 COMPR EHENS RHEA METAB OLIC PANEL alkaline phosphatase 51 U/L 37-153 normal Not Available [address], [address], 10/17/2023 11:12:35 10/16/19 24 10/17/2023 COMPR EHENS RHEA METAB OLIC PANEL AST 24 U/L 10-35 normal Not Available [address], [address], 10/17/2023 11:12:35 10/16/19 24 10/17/2023 COMPR EHENS RHEA METAB OLIC PANEL ALT 13 U/L 6-29 normal Not Available [address], [address], 10/17/2023 11:12:35 10/16/19 24 10/17/2023 CBC (INCL UDES DIFF/ PLT) white blood cell count 5.1 thous and/u L 3.8-10 .8 normal Not Available [address], [address], 10/17/2023 11:12:35 10/16/19 24 10/17/2023 CBC (INCL UDES DIFF/ PLT) red blood cell count 4.11 kristy on/uL 3.80-5 .10 normal Not Available [address], [address], 10/17/2023 11:12:35 10/16/19 24 10/17/2023 CBC (INCL UDES DIFF/ PLT) hemoglobin 12.5 g/dL 11.7-1 5.5 normal Not Available [address], [address], 10/17/2023 11:12:35 10/16/19 24 10/17/2023 CBC (INCL UDES DIFF/ PLT) hematocrit 36.4 % 35.0-4 5.0 normal Not Available [address], [address], 10/17/2023 11:12:35 10/16/19 24 10/17/2023 CBC (INCL UDES DIFF/ PLT) MCV 88.6 fL 80.0-1 00.0 normal Not Available [facility] [address] [address] [address], [place], [address], 10/17/2023 11:12:35 10/16/19 24 10/17/2023 CBC (INCL UDES DIFF/ PLT) MCH 30.4 pg 27.0-3 3.0 normal Not Available [address], [address], 10/17/2023 11:12:35 10/16/19 24 10/17/2023 CBC (INCL UDES DIFF/ PLT) MCHC 34.3 g/dL 32.0-3 6.0 normal Not Available [address], [address], 10/17/2023 11:12:35 10/16/19 24 10/17/2023 CBC (INCL UDES DIFF/ PLT) RDW 13.4 % 11.0-1 5.0 normal Not Available [address], [address], 10/17/2023 11:12:35 10/16/19 24 10/17/2023 CBC (INCL UDES DIFF/ PLT) platelet count 205 thous and/u L 140-40 0 normal Not Available [address], [address], 10/17/2023 11:12:35 10/16/19 24 10/17/2023 CBC (INCL UDES DIFF/ PLT) MPV 9.5 fL 7.5-12 .5 normal Not Available [address], [address], 10/17/2023 11:12:35 10/16/19 24 10/17/2023 CBC (INCL UDES DIFF/ PLT) absolute neutrophils 3111 cells /uL 1500-7 800 normal Not Available [address], [address], 10/17/2023 11:12:35 10/16/19 24 10/17/2023 CBC (INCL UDES DIFF/ PLT) absolute lymphocytes 1550 cells /uL 850-39 00 normal Not Available [address], [address], 10/17/2023 11:12:35 10/16/19 24 10/17/2023 CBC (INCL UDES DIFF/ PLT) absolute monocytes 316 cells /uL 200-95 0 normal Not Available [address] [place], [address], 10/17/2023 11:12:35 10/16/19 24 10/17/2023 CBC (INCL UDES DIFF/ PLT) absolute eosinophils 71 cells /uL 15-500 normal Not Available [address], [address], 10/17/2023 11:12:35 10/16/19 24 10/17/2023 CBC (INCL UDES DIFF/ PLT) absolute basophils 51 cells /uL 0-200 normal Not Available [facility] [address], [address], 10/17/2023 11:12:35 10/16/19 24 10/17/2023 CBC (INCL UDES DIFF/ PLT) neutrophils 61 % normal Not Available [address], [address], 10/17/2023 11:12:35 10/16/19 24 10/17/2023 CBC (INCL UDES DIFF/ PLT) lymphocytes 30.4 % normal Not Available [facility] [address], [address], 10/17/2023 11:12:35 10/16/19 24 10/17/2023 CBC (INCL UDES DIFF/ PLT) monocytes 6.2 % normal Not Available [facility] [address], [address], 10/17/2023 11:12:35 10/16/19 24 10/17/2023 CBC (INCL UDES DIFF/ PLT) eosinophils 1.4 % normal Not Available [address], [address], 10/17/2023 11:12:35 10/16/19 24 10/17/2023 CBC (INCL UDES DIFF/ PLT) basophils 1.0 % normal Not Available [address] [address] [place], [address], 10/17/2023 11:12:35 10/31/19 24 11/04/2023 CULTU RE, URINE , ROUTI NE culture, urine, routine SEE NOTE abnormal CULTU RE, URINE , ROUTI NE Micro Numbe r: [id number] Test Statu s: Final Speci men Sourc e: Urine Speci men Quali ty: Adequ ate Resul t: Great er than 100,0 00 CFU/m L of Esche alyssia a coli Non-v iable for susce ptibi lity testi ng. Not Available [address] [address] [place], [address], 11/04/2023 14:12:42 11/01/19 24 11/01/2023 urina lysis , dipst ick Leukocytes Negati ve Not Available In-Office Order Internal Use Only DO Not Attach Compendium DO Not Attach Compendium, Do Not Delete/merge, [id number] 11/01/2023 14:33:02 11/01/19 24 11/01/2023 urina lysis , dipst ick Nitrite positi ve Not Available In-Office Order Internal Use Only DO Not Attach Compendium DO Not Attach Compendium, Do Not Delete/merge, [id number] 11/01/2023 14:33:02 11/01/19 24 11/01/2023 urina lysis , dipst ick Urobilinogen .2 Not Available In-Of fice Order Internal Use Only DO Not Attach Compendium DO Not Attach Compendium, Do Not Delete/merge, [id number] 11/01/2023 14:33:02 11/01/19 24 11/01/2023 urina lysis , dipst ick Protein Negati ve Not Available In-Office Order Internal Use Only DO Not Attach Compendium DO Not Attach Compendium, Do Not Delete/merge, 11/01/2023 14:33:02 11/01/19 24 11/01/2023 urina lysis , dipst ick pH 7.0 Not Available In-Office Order Internal Use Only DO Not Attach Compendium DO Not Attach Compendium, Do Not Delete/merge, 11/01/2023 14:33:02 11/01/19 24 11/01/2023 urina lysis , dipst ick Blood Non-He molyze d: Trace Not Available In-Office Order Internal Use Only DO Not Attach Compendium DO Not Attach Compendium, Do Not Delete/merge, 11/01/2023 14:33:02 11/01/19 24 11/01/2023 urina lysis , dipst ick Specific [place] 1.020 Not Available In-Off ice Order Internal Use Only DO Not Attach Compendium DO Not Attach Compendium, Do Not Delete/merge, 11/01/2023 14:33:02 11/01/19 24 11/01/2023 urina lysis , dipst ick Ketone Negati ve Not Available In-Office Order Internal Use Only DO Not Attach Compendium DO Not Attach Compendium, Do Not Delete/merge, 11/01/2023 14:33:02 11/01/19 24 11/01/2023 urina lysis , dipst ick Bilirubin Negati ve Not Available In-Office Order Internal Use Only DO Not Attach Compendium DO Not Attach Compendium, Do Not Delete/merge, 11/01/2023 14:33:02 11/01/19 24 11/01/2023 urina lysis , dipst ick Glucose Negati ve Not Available In-Office Order Internal Use Only DO Not Attach Compendium DO Not Attach Compendium, Do Not Delete/merge, 11/01/2023 14:33:02 11/01/19 24 11/01/2023 urina lysis , dipst ick Appearance Cloudy Not Available In-Offi ce Order Internal Use Only DO Not Attach Compendium DO Not Attach Compendium, Do Not Delete/merge, [id number] 11/01/2023 14:33:02 11/01/19 24 11/01/2023 urina lysis , dipst ick Color Yellow Not Available In-Office Order Internal Use Only DO Not Attach Compendium DO Not Attach Compendium, Do Not Delete/merge, [id number] 11/01/2023 14:33:02 04/16/20 24 04/22/2024 MAGNE SIUM magnesium 2.3 mg/dL 1.5-2. 5 normal Not Available [address], [address], 04/22/2024 02:34:49 04/16/2004/22/2024 BASIC METAB OLIC PANEL glucose 96 mg/dL 65-99 normal Fasti ng refer ence inter corazon Not Available [address], [address], 04/22/2024 02:34:50 04/16/20 24 04/22/2024 BASIC METAB OLIC PANEL urea nitrogen (BUN) 14 mg/dL 7-25 normal Not Available [address], [address], 04/22/2024 02:34:50 04/16/20 24 04/22/2024 BASIC METAB OLIC PANEL creatinine 0.66 mg/dL 0.60-0 .95 normal Not Available [address], [address], 04/22/2024 02:34:50 04/16/20 24 04/22/2024 BASIC METAB OLIC PANEL eGFR 88 mL/mi n/1.7 3m2 > or = 60 normal Not Available [address], [address], 04/22/2024 02:34:50 04/16/20 24 04/22/2024 BASIC METAB OLIC PANEL BUN/creatini ne ratio SEE NOTE: (calc ) 6-22 Not Repor huseyin: BUN and Creat inine are withi n refer ence range . Not Available [address], [address], 04/22/2024 02:34:50 04/16/20 24 04/22/2024 BASIC METAB OLIC PANEL sodium 137 mmol/ L 135-14 6 normal Not Available [address], [address], 04/22/2024 02:34:50 04/16/20 24 04/22/2024 BASIC METAB OLIC PANEL potassium 3.9 mmol/ L 3.5-5. 3 normal Not Available [address], [address], 04/22/2024 02:34:50 04/16/20 24 04/22/2024 BASIC METAB OLIC PANEL chloride 101 mmol/ L 98-110 normal Not Available [address], [address], 04/22/2024 02:34:50 04/16/20 24 04/22/2024 BASIC METAB OLIC PANEL carbon dioxide 21 mmol/ L 20-32 normal Not Available [address], [address], 04/22/2024 02:34:50 04/16/20 24 04/22/2024 BASIC METAB OLIC PANEL calcium 9.0 mg/dL 8.6-10 .4 normal Not Available [address], [address], 04/22/2024 02:34:50 07/31/20 24 08/01/2024 COMPR EHENS RHEA METAB OLIC PANEL glucose 97 mg/dL 65-99 normal Fasti ng refer ence inter corazon Not Available [address], [address], 08/01/2024 09:01:40 07/31/20 24 08/01/2024 COMPR EHENS RHEA METAB OLIC PANEL urea nitrogen (BUN) 15 mg/dL 7-25 normal Not Available [address], [address], 08/01/2024 09:01:40 07/31/20 24 08/01/2024 COMPR EHENS RHEA METAB OLIC PANEL creatinine 0.60 mg/dL 0.60-0 .95 normal Not Available [address], [address], 08/01/2024 09:01:40 07/31/20 24 08/01/2024 COMPR EHENS RHEA METAB OLIC PANEL eGFR 90 mL/mi n/1.7 3m2 > or = 60 normal Not Available [address], [address], 08/01/2024 09:01:40 07/31/20 24 08/01/2024 COMPR EHENS RHEA METAB OLIC PANEL BUN/creatini ne ratio SEE NOTE: (calc ) 6-22 Not Repor huseyin: BUN and Creat inine are withi n refer ence range . Not Available [address], [address], 08/01/2024 09:01:40 07/31/20 24 08/01/2024 COMPR EHENS RHEA METAB OLIC PANEL sodium 137 mmol/ L 135-14 6 normal Not Available [address], [address], 08/01/2024 09:01:40 07/31/20 24 08/01/2024 COMPR EHENS RHEA METAB OLIC PANEL potassium 3.9 mmol/ L 3.5-5. 3 normal Not Available [address], [address], 08/01/2024 09:01:40 07/31/20 24 08/01/2024 COMPR EHENS RHEA METAB OLIC PANEL chloride 99 mmol/ L 98-110 normal Not Available [address], [address], 08/01/2024 09:01:40 07/31/20 24 08/01/2024 COMPR EHENS RHEA METAB OLIC PANEL carbon dioxide 29 mmol/ L 20-32 normal Not Available [address], [address], 08/01/2024 09:01:40 07/31/20 24 08/01/2024 COMPR EHENS RHEA METAB OLIC PANEL calcium 9.2 mg/dL 8.6-10 .4 normal Not Available [address], [address], 08/01/2024 09:01:40 07/31/20 24 08/01/2024 COMPR EHENS RHEA METAB OLIC PANEL protein, total 6.8 g/dL 6.1-8. 1 normal Not Available [address], [address], 08/01/2024 09:01:40 07/31/20 24 08/01/2024 COMPR EHENS RHEA METAB OLIC PANEL albumin 4.5 g/dL 3.6-5. 1 normal Not Available [address], [address], 08/01/2024 09:01:40 07/31/20 24 08/01/2024 COMPR EHENS RHEA METAB OLIC PANEL globulin 2.3 g/dL_ (calc ) 1.9-3. 7 normal Not Available [address], [address], 08/01/2024 09:01:40 07/31/20 24 08/01/2024 COMPR EHENS RHEA METAB OLIC PANEL albumin/glob ulin ratio 2.0 (calc ) 1.0-2. 5 normal Not Available [address], [address], 08/01/2024 09:01:40 07/31/20 24 08/01/2024 COMPR EHENS RHEA METAB OLIC PANEL bilirubin, total 0.5 mg/dL 0.2-1. 2 normal Not Available [address], [address], 08/01/2024 09:01:40 07/31/20 24 08/01/2024 COMPR EHENS RHEA METAB OLIC PANEL alkaline phosphatase 52 U/L 37-153 normal Not Available [facility] [address], [address], 08/01/2024 09:01:40 07/31/20 24 08/01/2024 COMPR EHENS RHEA METAB OLIC PANEL AST 22 U/L 10-35 normal Not Available [address], [address], 08/01/2024 09:01:40 07/31/20 24 08/01/2024 COMPR EHENS RHEA METAB OLIC PANEL ALT 17 U/L 6-29 normal Not Available [address], [address], 08/01/2024 09:01:40 07/31/20 24 08/01/2024 CBC (INCL UDES DIFF/ PLT) white blood cell count 4.7 thous and/u L 3.8-10 .8 normal Not Available [address], [address], 08/01/2024 09:01:41 07/31/20 24 08/01/2024 CBC (INCL UDES DIFF/ PLT) red blood cell count 4.42 kristy on/uL 3.80-5 .10 normal Not Available [address], [address], 08/01/2024 09:01:41 07/31/20 24 08/01/2024 CBC (INCL UDES DIFF/ PLT) hemoglobin 13.2 g/dL 11.7-1 5.5 normal Not Available [address], [address], 08/01/2024 09:01:41 07/31/20 24 08/01/2024 CBC (INCL UDES DIFF/ PLT) hematocrit 39.8 % 35.0-4 5.0 normal Not Available [facility] [address], [address], 08/01/2024 09:01:41 07/31/20 24 08/01/2024 CBC (INCL UDES DIFF/ PLT) MCV 90.0 fL 80.0-1 00.0 normal Not Available [address], [address], 08/01/2024 09:01:41 07/31/20 24 08/01/2024 CBC (INCL UDES DIFF/ PLT) MCH 29.9 pg 27.0-3 3.0 normal Not Available [address], [address], 08/01/2024 09:01:41 07/31/20 24 08/01/2024 CBC (INCL UDES DIFF/ PLT) MCHC 33.2 g/dL 32.0-3 6.0 normal For adult s, a sligh t decre ase in the calcu lated MCHC value (in the range of 30 to 32 g/dL) is most likel y not clini jabari signi fickandi t; pierre er, it shoul d be inter prete d with cauti on in corre latio n with other red cell valentin eters and the patie nt's clini [place] condi tion. Not Available [address], [address], 08/01/2024 09:01:41 07/31/20 24 08/01/2024 CBC (INCL UDES DIFF/ PLT) RDW 12.8 % 11.0-1 5.0 normal Not Available [facility] [address] [address] [address], [place], [address], 08/01/2024 09:01:41 07/31/20 24 08/01/2024 CBC (INCL UDES DIFF/ PLT) platelet count 197 thous and/u L 140-40 0 normal Not Available [address], [address], 08/01/2024 09:01:41 07/31/20 24 08/01/2024 CBC (INCL UDES DIFF/ PLT) MPV 9.2 fL 7.5-12 .5 normal Not Available [address], [address], 08/01/2024 09:01:41 07/31/20 24 08/01/2024 CBC (INCL UDES DIFF/ PLT) absolute neutrophils 2956 cells /uL 1500-7 800 normal Not Available [address], [address], 08/01/2024 09:01:41 07/31/20 24 08/01/2024 CBC (INCL UDES DIFF/ PLT) absolute lymphocytes 1260 cells /uL 850-39 00 normal Not Available [address], [address], 08/01/2024 09:01:41 07/31/20 24 08/01/2024 CBC (INCL UDES DIFF/ PLT) absolute monocytes 362 cells /uL 200-95 0 normal Not Available [address], [address], 08/01/2024 09:01:41 07/31/20 24 08/01/2024 CBC (INCL UDES DIFF/ PLT) absolute eosinophils 71 cells /uL 15-500 normal Not Available [address], [address], 08/01/2024 09:01:41 07/31/20 24 08/01/2024 CBC (INCL UDES DIFF/ PLT) absolute basophils 52 cells /uL 0-200 normal Not Available [address], [address], 08/01/2024 09:01:41 07/31/20 24 08/01/2024 CBC (INCL UDES DIFF/ PLT) neutrophils 62.9 % normal Not Available [address], [address], 08/01/2024 09:01:41 07/31/20 24 08/01/2024 CBC (INCL UDES DIFF/ PLT) lymphocytes 26.8 % normal Not Available [address], [address], 08/01/2024 09:01:41 07/31/20 24 08/01/2024 CBC (INCL UDES DIFF/ PLT) monocytes 7.7 % normal Not Available [address], [address], 08/01/2024 09:01:41 07/31/20 24 08/01/2024 CBC (INCL UDES DIFF/ PLT) eosinophils 1.5 % normal Not Available [address], [address], 08/01/2024 09:01:41 07/31/20 24 08/01/2024 CBC (INCL UDES DIFF/ PLT) basophils 1.1 % normal Not Available [address], [address], 08/01/2024 09:01:41 07/31/20 24 08/01/2024 AMYLA SE amylase 68 U/L 21-101 normal Not Available [address], [address], 08/01/2024 09:01:43 07/31/20 24 08/01/2024 LIPAS E lipase 31 U/L 7-60 normal Not Available [facility] [address] [place], [address], 08/01/2024 09:01:44 01/16/20 24 01/16/2024 MAMMO , scree ye, tomos ynthe sis, bilat eral No observ ation record ed. [email or web address] [facility] [address] [place], [address], 01/16/2024 14:52:25 Result Notes None recorded. Problems Name Problem SNOMED Code Status Onset Date Resolution Date Notes Provider Name and Address Organization Details Recorded Time Serum aspartate aminotran sferase level outside reference range 127060704 Active 2018 Korey Coleman MD Attn: Nikole villavicencio,[address] [facility], [place], [address], [place] [facility] 3 15:27:08 Mixed anxiety and depressiv e disorder 135401460 Active 2020 Korey Coleman MD Attn: Nikole villavicencio,[address] [facility], [place], [address], [place] [facility] 3 15:27:08 Body mass index 25-29 - overweigh t 021952589 Active 2022 Korey Coleman MD Attn: Nikole villavicencio,[address] [facility], [place], [address], [place] [facility] 3 15:29:35 Long-term drug therapy Active 2022 Korey Coleman MD Attn: Nikole villavicencio,[address] [facility], [place], [address], [place] [facility] 3 15:29:42 Carpal tunnel syndrome of right wrist 349606044172 108 Active 2022 Korey Coleman MD Attn: Nikole villavicnecio,[address] [facility], [place], [address], [place] [facility] 3 12:01:28 Seasonal allergic rhinitis 728005190 Active 2022 Korey Coleman MD Attn: Nikole villavicencio,[address] [facility], [place], [address], [place] [facility] 3 12:01:28 Overactiv e urinary bladder 848113202 Active 2022 Korey Coleman MD Attn: Nikole villavicencio,[address] [facility], [place], [address], [place] [facility] 3 12:01:28 Menopause present 035701825 Active 2022 Korey Coleman MD Attn: Nikole villavicencio,[address] [facility], [place], [address], [place] [facility] 3 12:01:28 Bilateral hearing loss 60731317 Active 2023 Korey Coleman MD Attn: Nikole villavicencio,[address] [facility], [place], [address], [place] [facility] 4 12:11:19 Impacted cerumen of bilateral ears 505649718556 9108 Completed 202304/16/2024 Korey Coleman MD Attn: Nikole maye,[address] [facility], [place], [address], [place] [facility] 4 12:11:44 Breast lump 40950525 Completed 201311/01/2022 Korey Coleman MD Attn: Nikole villavicencio,[address] [facility], [place], [address], [place] [facility] 3 15:26:53 Generaliz ed anxiety disorder 79295508 Completed 201104/16/2024 Korey Coleman MD Attn: Nikole villavicencio,[address] [facility], [place], [address], [place] [facility] 4 12:11:54 Hyperlipi demia 06511362 Active 2011 Korey Coleman MD Attn: Nikole villavicencio,[address] [facility], [place], [address], [place] [facility] 3 15:26:36 Spontaneo us ecchymosi s 784176986 Completed 201504/27/2016 Korey Coleman MD Attn: Nikole maye,[address] [facility], [place], [address], [place] [facility] 3 15:28:18 Hormone replaceme nt therapy Completed 201105/04/2022 Korey Coleman MD Attn: Nikole villavicencio,[address] [facility], [place], [address], [place] [facility] 3 15:27:20 Family history of polyp of colon 929698795 Completed 201111/01/2022 Korey Coleman MD Attn: Nikole villavicencio,[address] [place] [address], [place], [address], [place] [facility] 3 15:26:29 Localized , primary osteoarth ritis 624790895 Active 2011 Korey Coleman MD Attn: Nikole villavicencio,[address] [place] [address], [place], [address], [place] [facility] 3 15:26:10 Osteoarth ritis of knee 328317674 Active 2011 Korey Coleman MD Attn: Nikole villavicencio,[address] [place] [address], [place], [address], [place] [facility] 3 15:26:18 Benign essential hypertens ion 3534385 Active 2011 Korey Coleman MD Attn: Nikole villavicencio,[address] [facility], [place], [address], [place] [facility] 3 15:26:05 Transient insomnia 784195234 Completed 201202/15/2013 Korey Coleman MD Attn: Nikole villavicencio,[address] [place] [address], [place], [address], [place] [facility] 3 15:28:01 Joint effusion of ankle AND/OR foot 0118029 Completed 201402/04/2015 Korey Coleman MD Attn: Accountin g,[address] [facility], [place], [address], [place] [facility] 15:28:33 Problem Notes None recorded. Procedures Surgical History Date Name Laterality Status Provider Name and Address Organization Details Recorded Time 01/14/20 24 Cerumen Removal completed Korey Coleman MD Attn: Accounting,[address] [facility], [place], [address], [place] [facility] 01/14/2024 14:41:21 08/19/19 24 Cerumen Removal completed Korey Coleman MD Attn: Accounting,[address] [facility], [place], [address], [place] [facility] 08/19/2023 12:56:11 01/16/20 23 Cerumen Removal completed Korey Coleman MD Attn: Accounting,[address] [facility], [place], [address], [place] [facility] 01/20/2023 17:02:29 05/16/20 21 Suture/Staple removal completed DIEUDONNE Galicia Attn: Accounting,[address] [facility], [place], [address], [place] [facility] 05/16/2021 11:49:16 01/13/20 20 procedure on wrist completed Curtis Valdivia [place] [facility] 05/18/2020 15:34:21 05/01/20 18 Generic Procedure completed [place] Barnett [place] [facility] 05/01/2018 13:11:51 Xcapsl ctrc rmvl cplx wo ecp completed [place]ody Masters [place] [facility] 09/04/2016 17:09:02 Total hysterectomy completed [place]ody [place] [facility] 09/04/2016 17:09:10 Dental prophylaxis adult completed [place]per[place] Barn[place] [facility] 05/01/2018 13:12:29 Imaging Results Imaging Date Name Status LastModified by Organiz ation Details LastModified Time 01/16/2024 MAMMO, screening, tomosynthesis, bilateral completed [address] [place], [address], 01/16/2024 14:52:25 Procedure Notes None recorded. Medical Equipment None Reported. Allergies Allergen ID Allergen Name Allergen Category Reaction Reaction Severity Criticality Documentation Date Start Date Code Code System Note Provider Name and Address Organization Details Recorded Time [id number] cephalexi n medicatio n diarrhea severe Not available 05/21/2022 2231 RxNorm Not Available Not Available Not Available [id number] Substance with sulfonami de structure and antibacte rial mechanism of action (substanc e) medicatio n Not available Not available Not available 08/15/20162011 16406 8003 SNOMED Sever ity: Moder ate; Comme nt: Aller gy Type: Aller gy; Not Available Not Available Not Available Medications Name Sig Start Date Stop Date Status Note LastModified by Organization Details LastModified Time tolterodi ne ER 2 mg capsule,e xtended release 24 hr Take 1 capsule every day by oral route. 05/01 completed Not Available Not Available Not Available amoxicill in 500 mg capsule TAKE 4 CAPSULES BY MOUTH 1 HOUR PRIOR TO DENTAL APPOINTM ENT 11/01 completed Not Available Not Available Not Available prednison e 10 mg tablet TAKE 1 TABLET BY MOUTH TWICE A DAY 04/16 completed Not Available Not Available Not Available atorvasta tin 20 mg tablet TAKE 1 TABLET BY MOUTH EVERY DAY 2024 active Not Available Not Available Not Avai lable lisinopri l 20 mg-hydroc hlorothia zide 12.5 mg tablet TAKE 1 TABLET BY MOUTH TWICE A DAY 05/07 completed Not Available Not Available Not Available oxybutyni n chloride ER 10 mg tablet,ex tended release 24 hr TAKE 1 TABLET BY MOUTH EVERY DAY 04/08 completed Not Available Not Available Not Available azithromy ector 250 mg tablet TAKE 2 TABLETS (500 MG) BY ORAL ROUTE ONCE DAILY FOR 1 DAY THEN 1 TABLET (250 MG) BY ORAL ROUTE ONCE DAILY FOR 4 DAYS 11/11 completed Not Available Not Available Not Available fluconazo le 150 mg tablet Take 1 tablet every day by oral route for 1 day. 10/31 completed Not Available Not Available Not Available citalopra m 10 mg tablet Take 1 tablet every day by oral route. 10/29 completed Not Available Not Available Not Available tolterodi ne ER 4 mg capsule,e xtended release 24 hr Take 1 capsule every day by oral route. 09/03 completed Not Available Not Available Not Available hydrocodo ne 5 mg-acetam inophen 325 mg tablet 05/18 completed Not Available Not Available Not Available phenazopy ridine 200 mg tablet TAKE 1 TABLET BY MOUTH THREE TIMES A DAY FOR 2 DAYS 04/16 completed Not Available Not Available Not Available sertralin e 100 mg tablet TAKE 1 TABLET BY MOUTH EVERY DAY active Not Available Not Available No t Available amlodipin e 2.5 mg tablet TAKE 1 TABLET BY MOUTH EVERY DAY IN THE MORNING active Not Available Not Available No t Available fexofenad ine 180 mg tablet TAKE 1 TABLET BY MOUTH EVERY DAY 05/09 completed Not Available Not Available Not Available amlodipin e 5 mg tablet Take 1 tablet every day by oral route for 30 days. active Not Available Not Available No t Available aspirin 81 mg tablet,de layed release Take one tablet PO EVERY OTHER DAY 2018 active RxNorm: 368157;A llow Substitu tion: True Not Available Not Available Not Available tramadol 50 mg tablet TAKE 1 TABLET BY MOUTH EVERY 6 HOURS NEEDED FOR PAIN 04/16 completed Not Available Not Available Not Available simvastat in 40 mg tablet TAKE 1 TABLET(S ) BY MOUTH AT BEDTIME 05/07 completed Not Available Not Available Not Available ofloxacin 0.3 % ear drops INSTILL 10 DROPS INTO AFFECTED EAR(S) BY OTIC ROUTE ONCE DAILY x 5 days 10/31 completed Not Available Not Available Not Available amoxicill in 875 mg tablet Take 1 tablet every 12 hours by oral route for 10 days. 11/06 completed Not Available Not Available Not Available citalopra m 20 mg tablet TAKE 1 TABLET BY MOUTH EVERY DAY 11/09 completed Not Available Not Available Not Available lorazepam 0.5 mg tablet TAKE 1 TABLET BY MOUTH AT BEDTIME NEEDED 07/31 completed Not Available Not Available Not Available cephalexi n 500 mg capsule TAKE 1 CAPSULE BY MOUTH TWICE A DAY 08/19 completed Not Available Not Available Not Available simvastat in 20 mg tablet Take 1 tablet(s ) by mouth at bedtime 08/07 completed RxNorm: 871583;A llow Substitu tion: True Not Available Not Available Not Available ferrous sulfate 325 mg (65 mg iron) tablet Take 1 tablet(s ) by mouth daily 02/01 completed RxNorm: 141599;A llow Substitu tion: True Not Available Not Available Not Available losartan 25 mg tablet Take 1 tablet every day by oral route. 01/18 completed Not Available Not Available Not Available oxybutyni n chloride ER 5 mg tablet,ex tended release 24 hr 1 PO BID 05/27 completed RxNorm: 618966;A llow Substitu tion: True Not Available Not Available Not Available hydroxyzi ne HCl 25 mg tablet TAKE 1 TABLET BY MOUTH AT BEDTIME NEEDED FOR INSOMNIA active Not Available Not Available No t Available hydrochlo rothiazid e 25 mg tablet TAKE 1 TABLET BY MOUTH EVERY DAY active Not Available Not Available No t Available estradiol 0.5 mg tablet TAKE 1 TABLET BY MOUTH EVERY OTHER DAY 04/28 completed Not Available Not Available Not Available methylpre dnisolone 4 mg tablets in a dose pack TAKE 6 TABLETS ON DAY 1 DIRECTED ON PACKAGE AND DECREASE BY 1 TAB EACH DAY FOR A TOTAL OF 6 DAYS 05/04 completed Not Available Not Available Not Available oxybutyni n chloride 5 mg tablet Take 1 tablet(s ) by mouth bid 05/[address] Farris should be the prescrib ing please;R xNorm: 858794;A llow Substitu tion: True Not Available Not Available Not Available losartan 100 mg tablet TAKE 1 TABLET BY MOUTH EVERY DAY 2024 active Not Available Not Available Not Avai lable fluticaso ne propionat e 50 mcg/actua tion nasal spray,gorge pension SPRAY 1 SPRAY INTO EACH NOSTRIL EVERY DAY active Not Available Not Available No t Available sertralin e 50 mg tablet Take 1 tablet every day by oral route. 05/16 completed Not Available Not Available Not Available clorazepa te dipotassi um 7.5 mg tablet one po HS prn 08/03 completed RxNorm: 060536;A llow Substitu tion: True Not Available Not Available Not Available naproxen 500 mg tablet one PO bid with food prn 01/27 completed already has tried aleve;Rx Norm: 277131;A llow Substitu tion: True Not Available Not Available Not Available nitrofura ntoin monohydra te/macroc rystals 100 mg capsule TAKE 1 CAPSULE BY MOUTH TWICE A DAY 04/16 completed Not Available Not Available Not Available solifenac in 5 mg tablet TAKE 1 TABLET BY MOUTH EVERY DAY 10/15 completed Not Available Not Available Not Available Vesicare 10 mg tablet Take 1 tablet(s ) by mouth daily 07/26 completed RxNorm: 791499;A llow Substitu tion: True Not Available Not Available Not Available GaviLyte- N 420 gram oral solution 05/18 completed Not Available Not Available Not Available Shingrix (PF) 50 mcg/0.5 mL intramusc ular suspensio n, kit 11/11 completed Not Available Not Available Not Available BinaxNOW COVID-19 Ag Self Test kit USE DIRECTED 05/10 completed Not Available Not Available Not Available Vitals Date Recorded Body height Provider Name an d Address Organization Details Last Updated DateTime 11/01/2023 152.4 cm Gamal Correia MA [facility] 2023 14:33:09 Date Recorded Body temperature Provider Name a nd Address Organization Details Last Updated DateTime 11/01/2023 97.3 [degF] Gamal Correia MA [facility] 11/01/2023 14:34:02 Date Recorded Oxygen saturation Oxygen saturation in Arterial blood by Pulse oximetry Provider Name and Address Organization Details Last Updated DateTime 11/01/2023 97 % 97 % Gamal Correia MA [facility] 11/01/2023 14:34:05 Date Recorded Heart rate Provider Name an d Address Organization Details Last Updated DateTime 11/01/2023 62 /min Gamal Correia MA [facility] 2023 14:34:09 Date Recorded Body height Provider Name an d Address Organization Details Last Updated DateTime 01/14/2024 152.4 cm Keturah Quinn PATRICK [facility] 01/14/20 14:18:12 Date Recorded Oxygen saturation Oxygen saturation in Arterial blood by Pulse oximetry Provider Name and Address Organization Details Last Updated DateTime 01/14/2024 95 % 95 % Keturah Quinn PATRICK [facility] 01/14/2024 14:23:16 Date Recorded Heart rate Provider Name an d Address Organization Details Last Updated DateTime 01/14/2024 61 /min Keturah Quinn MA [facility] 01/14/20 14:23:29 Date Recorded Body temperature Provider Name a nd Address Organization Details Last Updated DateTime 01/14/2024 97.9 [degF] Keturah QuinnPATRICK [facility] 024 14:23:55 Date Recorded Body height Provider Name an d Address Organization Details Last Updated DateTime 04/16/2024 152.4 cm Raul Barr MA [facility] 04/16 11:08:29 Date Recorded Body mass index (BMI) Body weight Provider Name and Address Organization Details Last Updated DateTime 04/16/2024 27 kg/m2 25041.75 g Raul Barr MA [facility] 04/16/2024 11:18:29 Date Recorded Body temperature Provider Name a nd Address Organization Details Last Updated DateTime 04/16/2024 97.9 [degF] Raul Barr MA [facility] 04/16/2024 11:22:36 Date Recorded Heart rate Provider Name an d Address Organization Details Last Updated DateTime 04/16/2024 60 /min Raul Barr MA [facility] 04/16 11:22:37 Date Recorded Oxygen saturation Oxygen saturation in Arterial blood by Pulse oximetry Provider Name and Address Organization Details Last Updated DateTime 04/16/2024 98 % 98 % Raul Barr MA [facility] 04/16/2024 11:22:40 Date Recorded Body height Provider Name an d Address Organization Details Last Updated DateTime 07/31/2024 152.4 cm Amanda Salcedo MA [facility] 024 10:47:47 Date Recorded Body mass index (BMI) Body weight Provider Name and Address Organization Details Last Updated DateTime 07/31/2024 27.2 kg/m2 08391.44 g Amanda Salcedo MA [facility] 07/31/2024 10:48:02 Date Recorded Body temperature Provider Name a nd Address Organization Details Last Updated DateTime 07/31/2024 99 [degF] Amanda Salcedo MA [facility] 024 10:48:55 Date Recorded Oxygen saturation Oxygen saturation in Arterial blood by Pulse oximetry Provider Name and Address Organization Details Last Updated DateTime 07/31/2024 99 % 99 % Amanda Salcedo MA [facility] 07/31/2024 10:49:23 Date Recorded Heart rate Provider Name an d Address Organization Details Last Updated DateTime 07/31/2024 61 /min Amanda Salcedo MA [facility] 024 10:49:33 Date Recorded Systolic blood pressure Diastolic blood pressure Provider Name and Address Organization Details Last Updated DateTime 11/01/2023 138 mm[Hg] 56 mm[Hg] Korey Coleman MD Attn: Accounting,[address] [place], [address], [facility] 11/01/2023 17:47:56 Date Recorded Systolic blood pressure Diastolic blood pressure Provider Name and Address Organization Details Last Updated DateTime 01/14/2024 149 mm[Hg] 72 mm[Hg] Keturah Quinn MA [facility] 01/14/2024 14:24:29 Date Recorded Systolic blood pressure Diastolic blood pressure Provider Name and Address Organization Details Last Updated DateTime 04/16/2024 164 mm[Hg] 71 mm[Hg] Raul Barr MA [facility] 04/16/2024 11:22:55 Date Recorded Systolic blood pressure Diastolic blood pressure Provider Name and Address Organization Details Last Updated DateTime 04/16/2024 140 mm[Hg] 70 mm[Hg] Korey Coleman MD Attn: Accounting,[address] [place], [address], [place] - [facility] 04/16/2024 12:05:18 Date Recorded Systolic blood pressure Diastolic blood pressure Provider Name and Address Organization Details Last Updated DateTime 07/31/2024 144 mm[Hg] 74 mm[Hg] DIEUDONNE Landin Attn: Accounting,[address] [facility], [place], [address], [facility] 07/31/2024 11:09:49 Social History Question Answer Notes LastModified by Organizat ion Details LastModified Time Tobacco Smoking Status Never Smoker Melody Masters roxy, [facility] 09/03/2018 14:37:34 Do You Have An Advance Directive? Yes Information not available 04/28/2021 What Is Your Level Of Alcohol Consumption? None Information not available 11/04/2020 Are You Blind Or Do You Have Difficulty Seeing? No Information not available 04/28/2021 What Is Your Level Of Caffeine Consumption? Occasional Information not available 04/28/2021 Are You Currently Employed? No Information not available 04/28/2021 Are You Deaf Or Do You Have Serious Difficulty Hearing? Yes Information not available 04/28/2021 What Type Of Diet Are You Following? REGULAR Information not available 04/28/2021 What Was The Date Of Your Most Recent Tobacco Screening? 08/14/2024 [email or web address] Information not available 08/14/2024 What Is Your Relationship Status? Information not available 10/31/2021 Do You Use Your Seat Belt Or Car Seat Routinely? Yes Information not available 04/28/2021 Do You Have Smoke And Carbon Monoxide Detectors In Your Home? Yes Information not available 04/28/2021 Are You Passively Exposed To Smoke? No Information no t available 04/28/2021 Do You Feel Stressed (tense, Restless, Nervous, Or Anxious, Or Unable To Sleep At Night)? [id number] Information not available 04/28/2021 Do You Use Any Illicit Or Recreational Drugs? No Information not available 11/04/2020 Has Tobacco Cessation Counseling Been Provided? No Information not available 11/04/2020 Do You Or Have You Ever Used Any Other Forms Of Tobacco Or Nicotine? No Information not available 11/04/2020 Sex: Female Functional Status Question Answer Note LastModified by Organizat ion Details LastModified Time Are you able to care for yourself? Yes Information not available 04/28/2021 What is your exercise level? Moderate exercise at the ca 2 classes a week Information not available 01/14/2024 Mental Status None recorded. Family History Relationship Description Onset Age of this Age Resolved Age Notes LastModified by Organization Details LastModified Time Father Alcoholism [email or web address] Not shanna ilable 09/04/2016 17:09:24 Father Coronary arterioscler osis [email or web address] Not available 04/08 09:19:35 Father Myocardial infarction [email or web address] Not available 03/13 09:19:45 Brother Alcoholism [email or web address] Not av ailable 09/04/2016 17:09:24 Brother Myocardial infarction 77 [email or web address] Not available 10/31 13:18:33 Sister Asthma [email or web address] Not availab le 09/04/2016 17:09:30 Sister Obsessive-co mpulsive disorder [email or web address] Not available 17:09:51 Mother Malignant tumor of colon [email or web address] Not available 17:09:36 Mother Dementia [email or web address] Not avail able 09/04/2016 17:09:42 Medical History Condition Response Anxiety Disorder Y High Blood Pressure Y High Cholesterol Y Gynecological History Statement/Question Response Menses Monthly N Obstetrics History GPAL:G 0 P 0 0 0 0 Immunizations Vaccine Type Date Status Note Provider Nam e and Address Organization Details Recorded Time Influenza, high-dose, trivalent, PF 8 completed El[place], [place] [facility] 06/09/2018 11:10:09 zoster recombinant 9 completed [place] Gen[place] [facility] 05/15/2019 11:17:10 SARS-COV-2 (COVID-19) vaccine, UNSPECIFIED 1 completed Curtis Valdiv[place] [facility] 01/18/2021 11:41:48 SARS-COV-2 (COVID-19) vaccine, UNSPECIFIED 1 completed Curtis Valdiv[place] [facility] 01/18/2021 11:41:36 Influenza, high-dose, quadrivalent, PF 1 completed [place] Lilia [place] [facility] 06/05/2021 16:31:18 COVID-19, mRNA, LNP-S, PF, 30 mcg/0.3 mL dose 1 completed Xiomara Paniagua LPN [place] [facility] 01/10/2022 15:14:15 COVID-19, mRNA, LNP-S, PF, 30 mcg/0.3 mL dose 2 completed Xiomara Paniagua LPN [place] [facility] 01/10/2022 15:14:45 influenza, unspecified formulation 2 completed [place] L[place] [facility] 06/11/2022 13:59:02 COVID-19, mRNA, LNP-S, bivalent, PF, 30 mcg/0.3 mL dose 2 completed [place] L[place] [facility] 06/11/2022 13:59:26 Pneumococcal conjugate PCV 13 7 completed Not Available [facility] 08/29/2019 02:33:25 influenza, unspecified formulation 4 completed [place] [facility] 05/18/2024 14:57:37 COVID-19, mRNA, LNP-S, PF, jill-sucrose, 30 mcg/0.3 mL 4 completed [place] L[place] [facility] 05/18/2024 14:58:00 RSV, bivalent, protein subunit RSVpreF, diluent reconstituted, 0.5 mL, PF 4 completed [place] L[place] [facility] 06/25/2024 14:08:58 Tdap 9 completed Not Available [facility] 08/29/2019 02:37:31 Influenza, split virus, trivalent, preservative 5 completed Not Available [facility] 08/15/2016 05:40:03 Influenza, split virus, trivalent, preservative 2 completed Not [facility] 08/15/2016 05:40:03 Influenza, split virus, trivalent, preservative 3 completed Not Available [facility] 08/15/2016 05:40:03 Td (adult), 2 Lf tetanus toxoid, preservative free, adsorbed 8 completed Not Available [facility] 08/15/2016 05:40:03 Pneumococcal conjugate PCV20, polysaccharide [id number] conjugate, adjuvant, PF 4 completed Raul Barr MA [facility], [place] - [facility] 10/16/2023 13:18:13 Past Encounters Encounter ID Performer Location Encounter Start Date Encounter Closed Date Diagnosis/Indication Diagnosis SNOMED-CT Code Diagnosis ICD10 Code Diagnosis Note [id number] [facility] [address] [place] [address], [place] [address] 09/04/2016 17:03:20 09/05/2016 15:34:38 Mixed anxiety and depressive disorder 070013108 F41.8 Acute maxi llary sinusitis 08725776 J01.00 [id number] Michela Kendall [facility] [address] [place] [address] 10/08/2016 12:07:25 10/09/2016 13:56:45 Benign essential hypertension 1399299 I10 Administra tion of pneumococcal vaccine 62981964 Z23 Mixed hyperlipidemia 267 036853 E78.2 [id number] [facility] [address] [place] [address] 04/08/2017 12:17:20 04/08/2017 15:47:38 Benign essential hypertension 4495538 I10 Menopause present 935338 006 N95.1 Mixed hyperlipidemia 267 403925 E78.2 Mixed anxi ety and depressive disorder 652284126 F41.8 [id number] [facility] [address] [place] [address] 05/08/2017 11:14:01 05/08/2017 12:32:12 Screening for osteoporosis 359001284 Z13.156 [id number] [facility] [address] [place] [address] 10/31/2017 12:51:51 10/31/2017 17:01:18 Benign essential hypertension 4549841 I10 Hormone re placement therapy 536753865 Z79.890 decreasing to 3 times a week Urgent xin akua to urinate 67171579 R39.15 meds working well Mixed anxi ety and depressive disorder 076405656 F41.8 Mixed hyperlipidemia 267 626292 E78.2 [id number] Aniyah Lund MA [facility] [address] [place] [address] 05/01/2018 12:43:33 05/02/2018 11:44:25 Benign essential hypertension 1688253 I10 Mixed hyperlipidemia 267 451626 E78.2 Urgent xin akua to urinate 49950249 R39.15 meds working well Mixed anxi ety and depressive disorder 568417827 F41.8 Hormone re placement therapy 655098459 Z79.890 decreasing to 3 times a week [id number] MARILYN Turner [facility] [address] [place] [address] 09/03/2018 14:32:26 09/04/2018 09:21:53 Impacted cerumen of bilateral ears 2421410317 789679 H61.23 no qtips, may continue debrox and bulb syringe for prevention . Acute righ t otitis media 042288509 H66.91 [id number] [facility] [address] [place] [address] 11/06/2018 11:19:00 11/07/2018 09:44:28 Benign essential hypertension 7886288 I10 Mixed anxi ety and depressive disorder 344941748 F41.8 Administra tion of viral vaccine 99454396 Z23 Mixed hyperlipidemia 267 594507 E78.2 Viral uppe r respiratory tract infection 632530757 J06.9 resolving Pelvic lolis or dysfunction 157636474 M62.9 Administra tion of diphtheria, pertussis, and tetanus vaccine 656598949 Z23 [id number] [facility] [address] [place] [address] 05/07/2019 11:43:29 05/07/2019 13:24:33 Benign essential hypertension 3822937 I10 Mixed anxi ety and depressive disorder 608796715 F41.8 Mixed hyperlipidemia 267 732224 E78.2 Screening for malignant neoplasm of breast 615841292 Z12.31 Screening for malignant neoplasm of colon 214752177 Z12.11 Hormone re placement therapy 510616199 Z79.890 decreasing to 3 times a week [id number] MARILYN Turner [facility] [address] [place] [address] 08/13/2019 13:39:04 08/13/2019 14:45:50 Viral upper respiratory tract infection 929677217 J06.9 Get plenty of rest, push fluids, vaporizer, saline nasal spray, robitussin for cough prn, tylenol for LOUIS prn, call back if persistent colored nasal drainage or sputum, fevers, sinus pain, SOB. Will hold on to [facility] unless progressio n of symptoms Impacted c erumen of bilateral ears 1247501749 263286 H61.23 no qtips, may continue debrox and bulb syringe for prevention . [id number] [facility] [address] [place] [address] 11/12/2019 14:37:26 11/13/2019 10:09:01 Mixed anxiety and depressive disorder 184777201 F41.8 Hormone re placement therapy 881700379 Z79.890 decreasing to 3 times a week [id number] [facility] [address] [place] [address] 05/18/2020 14:00:50 05/19/2020 14:11:51 Mixed anxiety and depressive disorder 103765308 F41.8 Benign ess ential hypertension 1431448 I10 Hyperlipidemia 09112634 E78.5 [id number] [facility] [address] [place] [address] 09/12/2020 14:25:41 09/12/2020 17:16:07 Change in skin lesion 034521692 L98.9 Raised tin orrheic keratosis 6130114136 14490 L82.1 multiple Benign ess ential hypertension 4978469 I10 [id number] MARILYN Turner [facility] [address] [place] [address] 11/04/2020 10:21:50 11/04/2020 16:27:53 Polyuria 98518280 R35.8 Liver enzy mes level above reference range 088567075 R74.01 may consider cutting the atovastati n dose, and estradiol. Will have lab drawn this weekend and have in office appt next week to review and exam. Abdominal bloating 04211 9008 R14.0 will have lab done this weekend and schedule in person visit next week for full exam. [id number] [facility] [address] [place] [address] 11/09/2020 10:05:07 11/09/2020 13:40:02 Benign essential hypertension 1526407 I10 Mixed anxi ety and depressive disorder 233818883 F41.8 switched today from citalopram to sertraline 50mg History of urinary tract infection 2257542215 107 Z87.440 finishing up on Macrobid Excessive daytime sleepiness - normal night sleep 026852557 G47.19 Seasonal a ffective disorder 523823277 F33.9 Impacted c erumen of bilateral ears 0755141666 429369 H61.23 [id number] Haven Burnham MA [facility] [address] [place] [address] 12/01/2020 15:40:20 12/01/2020 16:57:39 Impacted cerumen of bilateral ears 1776719415 788830 H61.23 [id number] [facility] [address] [place] [address] 01/18/2021 09:31:32 01/19/2021 12:37:17 Mixed anxiety and depressive disorder 061212248 F41.8 Normal grief reaction 27 9853050 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 lost significan t other to Covid in 11/2020 Bilateral hearing loss 95820773 H91.93 going to ENT REFERRED BY Clifford [id number] [facility] [address] [place] [address] 04/28/2021 11:57:06 04/28/2021 14:21:32 Benign essential hypertension 2201956 I10 Hyperlipidemia 92912948 E78.5 Mixed anxi ety and depressive disorder 928074062 F41.8 Abdominal pain 71057906 R10.9 [id number] DIEUDONNE Galicia [place] [address] [place] [address] 05/16/2021 11:07:55 05/16/2021 15:15:24 Laceration of forehead 083335780 S01.81XA Fall W19.XXXA Administra tion of influenza vaccine 47160725 Z23 [id number] [place] [address] [place] [address] 05/30/2021 11:58:16 05/30/2021 16:14:36 Dysuria 33397974 R30.9 Candidal vulvovaginitis 19002410 B37.3 [id number] [place] [address] [place] [address] 10/31/2021 12:09:57 10/31/2021 15:57:48 Mixed anxiety and depressive disorder 067862778 F41.8 Benign ess ential hypertension 6964866 I10 Generalize d anxiety disorder 36692987 F41.1 Body mass index 25-29 - overweight 115070930 Z68.29 Hyperlipidemia 54835313 E78.5 [id number] [place] [address] [place] [address] 04/27/2022 15:12:04 04/30/2022 13:08:45 Cellulitis of toe of right foot 0111082037 6147202 L03.031 Allergic r eaction to bee sting 468618486 T63.444A [id number] [place] [address] [place] [address] 05/04/2022 12:08:49 05/07/2022 10:21:50 Benign essential hypertension 9740478 I10 Hyperlipidemia 71223599 E78.5 Nodule on finger 3380661 09 R22.31 Generalize d anxiety disorder 42587655 F41.1 Impacted c erumen of bilateral ears 5617338940 105644 H61.23 [id number] MARILYN Turner [facility] [address] [facility] [address] [facility] [place] [address] 05/10/2022 11:11:44 05/11/2022 10:50:39 Antibiotic-associated diarrhea 911038531 K52.1 continue probiotics and increase a day, recommend yogurt. Will go to [facility] today to chicken picker the kit for stool testing. Stay hydrated and watch for very dark urine or dizziness upon standing. [id number] Korey Coleman MD [facility] [address] [facility] [address] [facility] [place] [address] 11/01/2022 14:51:58 11/12/2022 09:43:11 Benign essential hypertension 7193946 I10 # HTN - {{Controll ed Nearly controlled Suboptima lly controlled * Uncontro lled}} - here - patient to recheck at home and call if not improved - Continue current medication s. No change in management - Encouraged routine blood pressure checksat home, targetless than 140/90 - DiscussedD SUSAN diet(https ://www.nhl bi.nih.gov /files/doc s/public/h eart/dash_ brief.pdf) anddietary sodium restrictio ns - Continue/I ncrease dietary efforts and physical activity Generalize d anxiety disorder 45837612 F41.1 - controlled substance agreement obtained today- [place] Prescripti on Monitoring Program website reviewed, no indication of misuse or abuse.- see below Hyperlipidemia 81570189 E78.5 # Hyperlipid emia- Last lipid panel {{<* >}} 1 year ago- ACC/AHA CV risk {{< >*}} 7.5%- Repeat {{today at earliest convenienc e prior to next visit* in one year}}- Continue with current management without changes.- Focus on a dietlow in saturated fats(https ://www.[facility] [employer].or g/educatio n/guidelin es-for-a-l ow-cholest caroline-low-s aturated-f at-diet),b lood pressure control,sm oking cessation( http://inna tyes.org/) anddaily exerciseto reduce your risk ofheart disease and stroke. Seasonal a llergic rhinitis 082355092 J30.2 # Allergic rhinitisIn termittent mild symptoms.C ontinue with intranasal corticoste roid, oral antihistam ine, and allergen avoidance. Consider leukotrien e receptor if symptoms become persistent /moderate. Mixed anxi ety and depressive disorder 142248851 F41.8 # Anxiety / Depression RASHEED-7 score: 2. none (0-4)PHQ9 score: 2. none (0-4), recurrent. StableCont inue meds. Body mass index 25-29 - overweight 268046944 Z68.26 Focus on a healthy diet, avoid added salt, and trwdbx4944 calories or less daily. Exercise as tolerated, targeting3 0-60 minutes of exercise daily, at least 5 days per week Long-term drug therapy 990643391 Z79.899 Checking routine labwork for ongoing long-term medication use. Carpal tisha ny syndrome of right wrist 1864890230 61812 G56.01 - current symptoms most consistent with carpal tunnel syndrome- conservati tve treatment: stretches/ exercises, handout,- to call if not improving in 30 days- Patient voices understand ing and agreement with plan. Overactive urinary bladder 726503527 N32.81 - follow-up with urology- continue solifenaci n - previous short trial from urology Menopause present 573180 006 N95.1 Z13.860 [id number] Korey Coleman MD [facility] [address] [place] [address] 01/15/2023 15:16:19 01/22/2023 14:35:28 Impacted cerumen in left ear 7677853634 838759 H61.22 - Cleared in office without difficulty - handout provided for home treatment Benign ess ential hypertension 1677289 I10 - patient to continue measuring and will call with update- consider addition of amlodipine if remains elevated [id number] Korey Coleman MD [facility] [address] [place] [address] 05/09/2023 12:05:10 05/10/2023 11:34:28 Benign essential hypertension 1279310 I10 # HTN- {{Controll ed Nearly controlled * Suboptim ally controlled Uncontrol led}}- Continue current medication s. No change in management - Encouraged routine blood pressure checksat home, targetless than 140/90- DiscussedD SUSAN diet(https ://www.nhl bi.nih.gov /files/doc s/public/h eart/dash_ brief.pdf) anddietary sodium restrictio ns- Continue/I ncrease dietary efforts and physical activity Hyperlipidemia 51907543 E78.5 # Hyperlipid emia- Last lipid panel {{<* >}} 1 year ago- ACC/AHA CV risk {{< >*}} 7.5%- Repeat {{today at earliest convenienc e prior to next visit* in one year}}- Continue with current management without changes.- Focus on a dietlow in saturated fats(https ://www.[facility] [employer].or g/educatio n/guidelin es-for-a-l ow-cholest caroline-low-s aturated-f at-diet),b lood pressure control,sm oking cessation( http://inna tyes.org/) anddaily exerciseto reduce your risk ofheart disease and stroke. Overactive urinary bladder 277731322 N32.81 - follow-up with urology- planning interstim placement tomorrow- continuing solifenaci n Seasonal a llergic rhinitis 411870094 J30.2 # Allergic rhinitisIn termittent mild symptoms.C ontinue with intranasal corticoste roid, oral antihistam ine, and allergen avoidance. Consider leukotrien e receptor if symptoms become persistent /moderate. Mixed anxi ety and depressive disorder 868006972 F41.8 # Anxiety / Depression RASHEED-7 score: 0. none (0-4)PHQ9 score: 0. none (0-4), recurrent. StableCont inue meds. Body mass index 25-29 - overweight 263807518 Z68.26 Focus on a healthy diet, avoid added salt, and bivtkt3770 calories or less daily. Exercise as tolerated, targeting3 0-60 minutes of exercise daily, at least 5 days per week Long-term drug therapy 902571590 Z79.899 Checking routine labwork for ongoing long-term medication use. [id number] Korey Coleman MD [facility] [address] [facility] [place] [address] 08/19/2023 11:57:36 08/19/2023 17:47:56 Bilateral hearing loss 29446372 H91.93 see below Benign ess ential hypertension 7065998 I10 # HTN- {{Controll ed* Nearly controlled Suboptima lly controlled Uncontrol led}}- Continue current medication s. No change in management - Encouraged routine blood pressure checksat home, targetless than 140/90- DiscussedD SUSAN diet(https ://www.[facility] bi.nih.gov /files/doc s/public/h eart/dash_ brief.pdf) anddietary sodium restrictio ns- Continue/I ncrease dietary efforts and physical activity Impacted c erumen of bilateral ears 0633176058 111078 H61.23 - cleared, slight residual canal irritation [id number] Korey Coleman MD [facility] [address] [facility] [address] 10/16/2023 12:08:11 10/16/2023 15:30:24 Benign essential hypertension 5704246 I10 # HTN- {{Controll ed Nearly controlled * Suboptim ally controlled Uncontrol led}}- Continue current medication s. No change in management - Encouraged routine blood pressure checksat home, targetless than 140/90- DiscussedD SUSAN diet(https ://www.[facility] bi.nih.gov /files/doc s/public/h eart/dash_ brief.pdf) anddietary sodium restrictio ns- Continue/I ncrease dietary efforts and physical activity Hyperlipidemia 02482772 E78.5 # Hyperlipid emia- Last lipid panel {{<* >}} 1 year ago- ACC/AHA CV risk {{< >*}} 7.5%- Repeat {{today* a t earliest convenienc e prior to next visit in one year}}- Continue with current management without changes.- Focus on a dietlow in saturated fats(https ://www.[facility] [employer].or g/educatio n/scottylin es-for-a-l ow-cholest caroline-low-s aturated-f at-diet),b lood pressure control,sm oking cessation( http://inna tyes.org/) anddaily exerciseto reduce your risk ofheart disease and stroke. Mixed anxi ety and depressive disorder 025041133 F41.8 # Anxiety / Depression RASHEED-7 score: 0. none (0-4)PHQ9 score: 0. none (0-4), recurrent. StableCont inue meds. Overactive urinary bladder 877282770 N32.[address] pierce with good effect Seasonal a llergic rhinitis 391548144 J30.2 # Allergic rhinitisIn termittent mild symptoms.C ontinue with intranasal corticoste roid, oral antihistam ine, and allergen avoidance. Consider leukotrien e receptor if symptoms become persistent /moderate. Body mass index 25-29 - overweight 815160066 Z68.26 Focus on a healthy diet, avoid added salt, and pchwls8022 calories or less daily. Exercise as tolerated, targeting3 0-60 minutes of exercise daily, at least 5 days per week Long-term drug therapy 499571983 Z79.899 Checking routine labwork for ongoing long-term medication use. Administra tion of pneumococcal vaccine 12578447 Z23 Acute diarrhea 890628497 R19.7 check routine labssympto ms improving per patientlik atul foodborne vs. viralsympt omatic treatment - bland diettrial of famotidine Abdominal bloating 64540 9002 R14.0 trial of famotidine [id number] Korey Coleman MD [facility] [address] [place] [address] 11/01/2023 14:27:22 11/04/2023 12:51:18 Dysuria 94607805 R30.0 # UTI, uncomplica huseyin Urine dipstick: {{+ neg*}} leukocyte esterase, {{+* neg}} nitrites, {{+* neg}} blood Start empiric antibiotic {{Nitrofur antoin 100 mg bid X 5 days* Trim ethoprim-s ulfamethox azole 800 mg/160 mg bid x 3 days Cepha lexin 500 mg bid x 5 days Amoxi cillin/cla vulanate 875 mg/125 mg bid x 5 days Cefdi meg 300 mg bid x 5 days Cipro floxacin 250 mg bid x 3 days}} Consider cranberry juice for symptom-re lief Phenazopyr idine 200 mg 3 times daily x 2 days if needed for comfort (turns urine orange, sometimes can affect contact lenses) Await urine culture results Call if not improving in 48 hoursPatie nt voices understand ing and agreement with plan [id number] Korey Coleman MD [facility] [address] [place] [address] 01/14/2024 14:13:33 01/14/2024 16:18:27 Impacted cerumen in left ear 4936314569 140729 H61.22 - Cleared in office without difficulty Bilateral hearing loss 97012343 H91.93 referral to audiology for reassessme nt [id number] Korey Coleman MD [facility] [address] [place] [address] 04/16/2024 11:02:31 04/17/2024 11:48:43 Benign essential hypertension 6447248 I10 # HTN{{Contr olled Near ly controlled * Suboptim ally controlled Uncontrol led}}Tyra nue current medication s. No change in management Encouraged routine blood pressure checksat home, targetless than 140/90Disc ussedDASH diet(https ://www.nhl bi.nih.gov /files/doc s/public/h eart/dash_ brief.pdf) anddietary sodium restrictio nsContinue /Increase dietary efforts and physical activityCh gomez electrolyt es and magnesium today Hyperlipidemia 13488981 E78.5 # Hyperlipid emiaLast lipid panel {{<* >}} 1 year agoACC/AHA CV risk {{< >*}} 7.5%, at targetRepe at {{today at earliest convenienc e prior to next visit* in one year}}Cont inue with current management without changes.Fo cus on a dietlow in saturated fats(https ://www.[facility] fhealth.or g/educatio n/guidelin es-for-a-l ow-cholest caroline-low-s aturated-f at-diet),b lood pressure control,sm oking cessation( http://inna tyes.org/) anddaily exerciseto reduce your risk ofheart disease and stroke. Mixed anxi ety and depressive disorder 788556443 F41.8 # Anxiety{{/ Depression * /Panic attacks /I nsomnia}}G AD-7 score: {{0 - minimal (0? 4 )* 1 - minimal (0? 4 ) 2 - minimal (0? 4 ) 3 - minimal (0? 4 ) 4 - minimal (0? 4 ) 5 - mild (5? 9 ) 6 - mild (5? 9 ) 7 - mild (5? 9 ) 8 - mild (5? 9 ) 9 - mild (5? 9 ) 10 - moderate (10? 1 4) 11 - moderate (10? 1 4) 12 - moderate (10? 1 4) 13 - moderate (10? 1 4) 14 - moderate (10? 1 4) 15 - severe (15? 2 1) 16 - severe (15? 2 1) 17 - severe (15? 2 1) 18 - severe (15? 2 1) 19 - severe (15? 2 1) 20 - severe (15? 2 1) 21 - severe (15? 2 1)}}PHQ-9 score: {{0 - minimal (0? 4 )* 1 - minimal (0? 4 ) 2 - minimal (0? 4 ) 3 - minimal (0? 4 ) 4 - minimal (0? 4 ) 5 - mild (5? 9 ) 6 - mild (5? 9 ) 7 - mild (5? 9 ) 8 - mild (5? 9 ) 9 - mild (5? 9 ) 10 - moderate (10? 1 4) 11 - moderate (10? 1 4) 12 - moderate (10? 1 4) 13 - moderate (10? 1 4) 14 - moderate (10? 1 4) 15 - moderately severe (15? 1 9) 16 - moderately severe (15? 1 9) 17 - moderately severe (15? 1 9) 18 - moderately severe (15? 1 9) 19 - moderately severe (15? 1 9) 20 - severe (20-27) 21 - severe (20-27) 22 - severe (20-27) 23 - severe (20-27) 24 - severe (20-27) 25 - severe (20-27) 26 - severe (20-27) 27 - severe (20-27)}}{ {Stable, continue current treatment. * Stable, patient interested in adjusting medication : Suboptim al, adusting treatment: }}- Recommende d Cognitive Behavioral Therapy (https://w vasquez.psychol ogytoday.c om/us/ther apy-types/ cognitive- behavioral -therapy)- Encouraged relaxation techniques (https://w vasquez.[facility]/liliyaNautalsedrick/cdr o/learning -- Communitie s/wellness /stress/st ress_hando uts/)- Stress management resources (https://w Enliken.[facility]/psNautaly/cdr o/learning -- Communitie s/wellness /stress/st ress_resou rces/)- Self-care handouts (https://homa diaz.[facility].e nabila/self-ca re-handout s/)- Recommende d mindfulnes s meditation and exercise.- Sleep hygiene (https://o omcenter .[facility].edu/s leep-hygie ne/) [place] Prescripti on Monitoring Program website reviewed, no indication of misuse or abuse. Updating controlled substance agreement Overactive urinary bladder 611257610 N32.[address] pierce with good effect Seasonal a llergic rhinitis 099089225 J30.2 # Allergic rhinitisIn termittent mild symptoms.C ontinue with intranasal corticoste roid, oral antihistam ine, and allergen avoidance. Consider leukotrien e receptor if symptoms become persistent /moderate. Body mass index 25-29 - overweight 945349084 Z68.26 Focus on a healthy diet, avoid added salt, and cnxuyo9203 calories or less daily. Exercise as tolerated, targeting3 0-60 minutes of exercise daily, at least 5 days per week Long-term drug therapy 220707409 Z79.899 Checking routine labwork for ongoing long-term medication use. Generalize d anxiety disorder 13138690 F41.1 updated - see below (cannot cancel diagnosis as lorazepam sent and cannot be unlocked) [id number] Henrietta Long, ONLINE SERVICES MANAGER-C [facility] [address] [place] [address] 07/31/2024 10:32:19 08/03/2024 10:12:38 Benign essential hypertension 1852882 I10 -pt brought BP log and it is in chart. She is running consistent ly higher than 140/90.-sh palma is having daily headaches but denies any visual changes or chest pain. Advised to go to the ER if she experience s any of these abnormal symptoms.- starting amlodipine 2.5 mg and will f/u in office in 2 weeks. Mixed anxi ety and depressive disorder 892014170 F41.8 -PHQ-9 stable-con tinue same dose of sertraline -Encourage d the adoption of healthy lifestyle habits, including regular exercise, balanced diet, adequate sleep, and stress management techniques . These lifestyle modificati ons can complement other treatment modalities and promote overall well-being .-Encourag ed connection s with support networks, such as family, friends, or support groups. Social support can provide emotional validation , practical assistance , and a sense of belonging, which are beneficial for individual s with depression .-report to ER for SI-f/u 6 months Stomach ache 080865715 R 10.9 -pt is to keep a food diary to see if we can pin point when she is having gas, bloating and stomach pains. We will f/u in 2 weeks at BP f/u. Insomnia 909519208 G47.0 0 - pt to d/c xanax and trial hydroxyzin e for anxiety and sleep.-pt educated that xanax is not to be used for generalize d anxiety or insomnia and other medication s should be trailed before taking this. There is also concerns with her increased age and taking this controlled substance. Pt verbalizes understand ing and will stop taking. [id number] Henrietta Long, ONLINE SERVICES MANAGER-C [facility] [address] [facility] [place] [address] 08/14/2024 11:02:37 08/14/2024 16:05:23 Benign essential hypertension 4842557 I10 -pt blood pressures have not changed since adding in amlodipine 2.5 mg. Will increase to 5 mg daily.-she is having daily headaches but denies any visual changes or chest pain. Advised to go to the ER if she experience s any of these abnormal symptoms.- starting amlodipine 5 mg and will f/u in office in 1 month. She is leaving for [place] to visit her sister the 04-30. She will take her BP there and call if she is below 100/50 or consistent ly above 140/90. Health Concerns Section Related Observation LastModified by Organization Detai ls LastModified Time None Recorded Concern Status LastModified by Organization Details LastModified Time None Recorded Advance Directives Directive Y: Payers Encounter Date Sequence Insurance Name Policy Number Policy Salas Covered Member ID Salas Member ID Guarantor Name 11/01/2023 1 [place] Cl Ambriz Mine [id number] Cl Ambriz Mine 11/01/2023 2 [employer]IG[employer] SUPPLEMENTAL - EMIRATI [employer] (MEDICARE SUPPLEMENT) PLAN F Cl Ambriz Mine [id number] Cl Ambriz Mine 01/14/2024 1 [place] Ambriz Mine [id number] Cl Ambriz Mine 01/14/2024 2 [employer] SUPPLEMENTAL - EMIRATI [employer] (MEDICARE SUPPLEMENT) PLAN F Cl M Mine [id number] Cl Ambriz Mine 04/16/2024 1 [place] Ambriz Mine [id number] Cl Katina Mine 04/16/2024 2 [employer] SUPPLEMENTAL - EMIRATI [employer] (MEDICARE SUPPLEMENT) PLAN F Cl Katina Mine [id number] Cl Katina Mine 07/31/2024 1 [place] Ambriz Mine [id number] Cl Katina iMne 07/31/2024 2 [employer] SUPPLEMENTAL - EMIRATI [employer] (MEDICARE SUPPLEMENT) PLAN F Cl Katina Blount [id number] Cl Blount 08/14/2024 1 [place] Cl Blount [id number] Cl Blount 08/14/2024 2 [employer] SUPPLEMENTAL - EMIRATI [employer] (MEDICARE SUPPLEMENT) PLAN F Cl Blount [id number] Cl Blount Notes Date Note Type Note Provider Name and Address Organization Details Recorded Time 024 text/ht ml Recurrent UTIReported bypatient.Severity:moderate Onset/Timing:sudden; 1 weeks Associated Symptoms:no frequency; no nocturia; no hematuria; no incomplete emptying; no flank pain; no back pain; no kidney stones;urgency;incontinence;dysuria; vaginal pain ACUTE VISIT/SUBJECTIVE: Cl presents with one week history of irritation with urination, occasional sharp pain to perineal area, perhaps some mild frequency, darker urine, no change in urgency.Used acetaminophen- last uti April,, treated with nitrofurantoin per Dr. 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 Pertinent positives and negatives as noted in HPI. All other systems reviewed and negative. - Typewriter Ribbon Winder/Nursing note reviewed. - Korey Coleman MD Attn: Accounting ,[address] [place], [address] , [facility] 11/01/2023 17:48:07 024 text/ht ml ACUTE VISIT/SUBJECTIVE: Cl presents with history of cerumen impactions, with recent issues with hearing aids, reports ears rechecked at [facility] and told had cerumen. Not necessarily satisfied with her hearing aids - would like evaluation by audiology. No ear pain Pertinent past medical, surgical, family and social history reviewed and updated as needed.Pertinent positives and negatives as noted in HPI. All other systems reviewed and negative.-Typewriter Ribbon Winder/Nursing note reviewed.- Korey Coleman MD Attn: Accounting ,[address] [place], [address] , [facility] 01/14/2024 14:49:32 024 text/ht ml Anxiety/DepressionReported bypatient.Quality:symptoms improved Severity:denies suicidal ideations; able to maintain relationships; does not interfere with activities of daily living Duration:symptoms lasting over 2 weeks; stablizing Onset/Timing:gradual; still present Context:major life stressors(health issue not major) Modifying Factors:social support; medications as directed Associated Symptoms:denies homicidal ideations; no significant weight gain; no significant weight loss; mood good; no crying spells; appetite good; energy good; maintaining functionality;anxiety;sleep disturbancesHyperlipidemiaReported bypatient.Duration:chronic; bladder study done tomorrow Control:usually well controlled Current Therapy:currently taking: (atorvastatin) Compliance:compliant; exercises Complications:no coronary artery disease; no peripheral artery disease; no cardiovascular disease Risk Factors:hypertensionHypertension F/UReported bypatient.Associated Symptoms:no dizziness; no lightheadedness; no chest pain; no shortness of breath; no palpitations; no edema; no calf pain with exertion Lifestyle:regular exercise; exercises 3-4 times/week; exercises for 30 minutes/day; limiting/avoiding salt; [employer] exercise classes Medications:taking medications as directed; no side effects from medication; checks blood pressure at home, range: (135-140/65) 6-MONTH FOLLOW-UP VISIT/SUBJECTIVE: Cl presents for routine 6-month follow-up of multiple medical problems, including hypertension, hyperlipidemia, depression with anxiety, and overactive bladder, among other chronic conditions Last routine follow-up office visit: [id number] labwork: 6Mar24 Patient reports consistent use of medications, without side effects or intolerances. Current concerns:Recently joined YVarsha bp at home 130-140/65-70 Health maintenance:Immunizations due: RSVColorectal cancer screeninJan20 - Fedder - 5yrfWell-woman exam: not indicatedMammography: [id number] - normalLDCT: never smoker HypertensionOn {{ amlodipine atenolol benazepril bis oprolol bumetanide candesartan carved ilol chlorthalidone clonidine diltiaz em doxazosin enalapril fosinopril fur osemide guanfacine hydralazine hydroc hlorothiazide* indapamide labetalol l isinopril losartan metolazone metopro lol nadolol nebivolol nicardipine nif edipine perindopril propranolol quina pril ramipril sotalol spironolactone telmisartan terazosin torsemide trand olapril triamterene valsartan verapam il}}{{ , amlodipine , atenolol , benazepril , bisoprolol , bumetanide , candesartan , carvedilol , chlorthalidone , clonidine , diltiazem , doxazosin , enalapril , fosinopril , furosemide , guanfacine , hydralazine , hydrochlorothiazide , indapamide , labetalol , lisinopril , losartan* , metolazone , metoprolol , nadolol , nebivolol , nicardipine , nifedipine , perindopril , propranolol , quinapril , ramipril , sotalol , spironolactone , telmisartan , terazosin , torsemide , trandolapril , triamterene , valsartan , verapamil}}{{Consistent* Inconsistent }} use of medications{{Reports Does not report any*}} headaches, blurry vision, dizziness, chest pain, shortness of breath, or palpitations{{Following* Not following}} a low salt diet.{{Exercising* Not exercising Limited exercise}} Hyperlipidemia{{Consistent use of lipid-lowering medication(s)* Inconsistent use of lipid-lowering medication(s) On no medication(s) at this time}}{{No side effects* Notes side effects including:}}{{Following* Not following}} a low-cholesterol dietLast lipid panel {{<* ~ >}} 1 year ago Anxiety/Depression{{Consistent* Incon sistent}} use of {{SSRI* SNRI bupropion medications}}. {{No side effects* Side effects, including:}}{{Not attending* Attending}} psychotherapy/counselingExperiencing {{more less the same amount of*}} physical and emotional stress{{Exercising* Not exercising}}Sleeping {{more* less about}} than 6 hours{{Reports Denies*}} panic attacksNo chest pain, palpitations, dyspnea, or gastrointestinal symptoms{{Denies* Endorses}} depression{{Denies* Endorses}} suicidal ideation{{Denies* Reports}} manic symptoms{{Denies* Reports}} hallucinations- Controlled substance agreement in EMR, Overactive bladderseeing Dr. Pierceusing InterStim and helpful - placed [id number] having some symptoms-Typewriter Ribbon Winder/Nursing note reviewed.- Korey Coleman MD Attn: Accounting ,[address] [place], [address] , [facility] 04/16/2024 12:12:07 024 text/ht ml Anxiety/DepressionReported bypatient.Associated Symptoms:denies homicidal ideations; no significant weight gain; no significant weight loss; no visual/auditory hallucinations; no delusions; no shortness of breath; mood good; no anxiety; no crying spells; no panic; no isolation; sleeping well; appetite good; energy good; no apathy; maintaining functionalityHypertension F/UReported bypatient.Associated Symptoms:no dizziness; no lightheadedness; no chest pain; no shortness of breath; no palpitations; no edema; no calf pain with exertion Lifestyle:regular exercise; limiting/avoiding salt Medications:taking medications as directed; no side effects from medication Pt is having concerns of intermittent stomach pains. She cannot pin point it to any foods but it is concerning to her. She denies any constipation, diarrhea every couple of weeks. No nauseas or vomiting and denies bloody stools DIEUDONNE Landin Attn: Accounting ,[address] [facility], [place], [address] , [facility] 07/31/2024 12:15:13 025 text/ht ml Hypertension F/UReported bypatient.Associated Symptoms:no dizziness; no lightheadedness; no chest pain; no shortness of breath; no palpitations; no edema; no calf pain with exertion Lifestyle:regular exercise; limiting/avoiding salt Medications:taking medications as directed; no side effects from medication Pt took her blood pressure on 08/11-145/72, today it was 144/75. She is still experiencing mild headaches daily. She denies any chest pain, tightness, SOB or palpitations. Her blood pressure cuff broke so she is going to go today to get a new one. Henrietta Long, ONLINE SERVICES MANAGER-C Attn: Accounting ,[address] [facility], [place], [address] , [facility] 08/14/2024 15:40:21 OBGyn Episode No OBEpisode recorded.
--- OUTSIDE RECORDS SUMMARY | 2024-09-08 17:33 | XMS_ITS | Patient Health Summary ---
Author Organization [facility] Address [facility] [place] [address] Care Team Providers Care Stock Preparation Supervisor Name Role Phone Unavailable Primary Care Provider Unavailabl e Note from [facility],non-owned Affiliates and Associated Physician Practices is amultiple site organization consisting of ambulatory clinics and hospital sitesin [place], [place], [place] and [place]. This disclosure is being madepursuant to the Care Everywhere program and may not contain all information available regarding this patient. Last updated 18.[facility] Social History Tobacco Use Types Packs/Day Years Used Date Smoking Tobacco: Never Assessed Sex and Gender Information Value Date Recorded Sex Assigned at Not on file Gender Identity Not on file Sexual Orientation Not on file Procedures * DERMATOPATHOLOGY(Performed 11/15/2020) Results * DERMATOPATHOLOGY (11/15/2020 3:33 AM CDT) Case Report Dermatopathology Report ? Case: [id number] ? Authorizing Provider: ??Jeronimo Murray MD ?Collected: ? 11/15/2020 03:33 AM ? Ordering Location: ? [facility] ?Received: ?11/17/2020 06:12 AM ? Pathologist: ? Indu Keane MD ? Specimen: ?Skin, left post deltoid ? 3:52 PM CDT DERMATOPATHOLOGY LABORATORY Final Diagnosis Specimen A. SKIN, left post deltoid: LICHEN PLANUS-LIKE KERATOSIS (BENIGN LICHENOID KERATOSIS) (L82.1) POST-INFLAMMATORY PIGMENT ALTERATION (L81.9) (see microscopic description) 3:52 PM T DERMATOPATHOLOGY LABORATORY Clinical History SK vs lentigo vs LM vs BCCA. Path# [id number]. 3:52 PM CDT DERMATOPATHOLOGY LABORATORY Gross Description Specimen A: Received is one formalin filled container labeled with the patient's name and designated left post deltoid. The specimen consists of a shave biopsy measuring [id number]. Jar 0. 3:52 PM CDT DERMATOPATHOLOGY LABORATORY Microscopic Description Specimen A. SKIN, left post deltoid: The epidermis is mildly acanthotic. There is a lichenoid infiltrate with vacuolar changes of basilar keratinocytes and scattered necrotic keratinocytes. Sections show abundant melanin within melanophages around the superficial vascular plexus. MART-1/Melan-A staining highlights regular periodicity of melanocytes along the dermoepidermal junction. 3:52 PM CDT DERMATOPATHOLOGY LABORATORY Disclaimer An external and internal positive and negative controls are appropriate for the histochemical, immunohistochemical and immunofluorescence stain(s) in this case (if any), except where stated explicitly. The performance characteristics of the stain(s) cited in this report were developed and its performance characteristic determined by the Dermatopathology Laboratory at [facility], directed by Dr. Verónica Mendes. These tests need not be, and therefore are not, approved by the [place] Food and Drug Administration. The tests are used for clinical purposes. Billing Codes Specimen Charges Stain Charges 19455 1 24677 1 1 3:52 PM CDT DERMATOPATHOLOGY LABORATORY Embedded Images 1 3:52 PM CDT DERMATOPATHOLOGY LABORATORY Pathology/Cytolo gy TISSUE SPECIMEN FROM SKIN / Unknown 11/15/2020 3:33 AM CDT 11/17/2020 6:12 AM CDT Jeronimo Murray MD LAB - PATHOLOGY/CYTO LOGY ORDERABLES DERMATOPATHOLOGY LABORATORY [facility] - Department of Dermatology [facility] [address] [place] [address], [address] [phone]
--- OUTSIDE RECORDS SUMMARY | 2024-09-08 17:33 | XMS_ITS | Clinical Summary ---
Author Organization [facility] Address [address] [facility] [place] [address] Care Team Providers Care Machine Stoppage Frequency Checker Name Role Phone Unavailable Primary Care Provider Unavailabl e Source Comments [facility],non-owned Affiliates and Associated Physician Practices is amultiple site organization consisting of ambulatory clinics and hospital sitesin [place], [place], [place] and [place]. This disclosure is being madepursuant to the Care Everywhere program and may not contain all information available regarding this patient. Last updated 18.[facility] Social History Tobacco Use Types Packs/Day Years Used Date Smoking Tobacco: Never Assessed Sex and Gender Information Value Date Recorded Sex Assigned at Not on file Gender Identity Not on file Sexual Orientation Not on file Plan of Treatment Health Maintenance Due Date Last Done Comments BONE DENSITY TESTING 1942 MEDICARE AWV ? 12 MONTHS 1942 DTAP/TDAP/TD VACCINES (1 - Tdap) 1961 PNEUMOCOCCAL VACCINE 50+ (1 of 1 - PCV) 1992 ZOSTER VACCINE (1 of 2) 1992 Respiratory Syncytial Virus (RSV) Vaccine Pt: or over 60 yrs (1 - 1-dose 75+ series) 2017 COVID-19 VACCINE ( - 2023-2 5 season) 2024 INFLUENZA VACCINE (#1) 2024 DEPRESSION SCREENING 08/12/2024 HEPATITIS B VACCINE Aged Out No longe r eligible based on patient's age to complete this topic HIB VACCINE Aged Out No longer eligi ble based on patient's age to complete this topic HPV VACCINE Aged Out No longer eligi ble based on patient's age to complete this topic MENINGOCOCCAL (Group B) VACCINE Aged Out No longer eligible based on patient's age to complete this topic MENINGOCOCCAL VACCINE Aged Out No ronaldo garo eligible based on patient's age to complete this topic
--- OUTSIDE RECORDS SUMMARY | 2024-09-08 17:33 | XMS_ITS | Encounter Summary ---
Author Organization [facility] Address [address] [facility] [place] [address] Care Team Providers Care Felt Cutter Name Role Phone Unavailable Primary Care Provider Unavailabl e Encounter Details Date Type Department Care Team (Late st Contact Info) Description 11/17/2020 Lab Requisition [facility] [address] [facility] [address] [place] [id number] Jeronimo Murray MD [address] [place] [address] Social History Tobacco Use Types Packs/Day Years Used Date Smoking Tobacco: Never Assessed Sex and Gender Information Value Date Recorded Sex Assigned at Not on file Gender Identity Not on file Sexual Orientation Not on file documented as of this encounter Plan of Treatment Not on file documented as of this encounter Procedures Procedure Name Priority Date/Time Associated Diagnosis Comments DERMATOPATHOLOGY Routine 11/15/2020 3:33 AM CDT documented in this encounter Results * DERMATOPATHOLOGY (11/15/2020 3:33 AM CDT) Case Report Dermatopathology Report ? Case: [id number] ? Authorizing Provider: ??Jeronimo Murray MD ?Collected: ? 11/15/2020 03:33 AM ? Ordering Location: ? [facility] ?Received: ?11/17/2020 06:12 AM ? Pathologist: ? Indu Keane MD ? Specimen: ?Skin, left post deltoid ? 3:52 PM T DERMATOPATHOLOGY LABORATORY Final Diagnosis Specimen A. SKIN, left post deltoid: LICHEN PLANUS-LIKE KERATOSIS (BENIGN LICHENOID KERATOSIS) (L82.1) POST-INFLAMMATORY PIGMENT ALTERATION (L81.9) (see microscopic description) 3:52 PM T DERMATOPATHOLOGY LABORATORY Clinical History SK vs lentigo vs LM vs BCCA. Path# [id number]. 3:52 PM T DERMATOPATHOLOGY LABORATORY Gross Description Specimen A: Received is one formalin filled container labeled with the patient's name and designated left post deltoid. The specimen consists of a shave biopsy measuring [id number]. Jar 0. 3:52 PM T DERMATOPATHOLOGY LABORATORY Microscopic Description Specimen A. SKIN, left post deltoid: The epidermis is mildly acanthotic. There is a lichenoid infiltrate with vacuolar changes of basilar keratinocytes and scattered necrotic keratinocytes. Sections show abundant melanin within melanophages around the superficial vascular plexus. MART-1/Melan-A staining highlights regular periodicity of melanocytes along the dermoepidermal junction. 3:52 PM T DERMATOPATHOLOGY LABORATORY Disclaimer An external and internal positive and negative controls are appropriate for the histochemical, immunohistochemical and immunofluorescence stain(s) in this case (if any), except where stated explicitly. The performance characteristics of the stain(s) cited in this report were developed and its performance characteristic determined by the Dermatopathology Laboratory at [facility], directed by Dr. Verónica Mendes. These tests need not be, and therefore are not, approved by the [place] Food and Drug Administration. The tests are used for clinical purposes. Billing Codes Specimen Charges Stain Charges 19700 1 53337 1 1 3:52 PM CDT DERMATOPATHOLOGY LABORATORY Embedded Images 1 3:52 PM CDT DERMATOPATHOLOGY LABORATORY Pathology/Cytolo gy TISSUE SPECIMEN FROM SKIN / Unknown 11/15/2020 3:33 AM CDT 11/17/2020 6:12 AM CDT Jeronimo Murray MD LAB - PATHOLOGY/CYTO LOGY ORDERABLES DERMATOPATHOLOGY LABORATORY [facility] - Department of Dermatology [address], [address] [phone] documented in this encounter Visit Diagnoses Not on filedocumented in this encounter
--- OUTSIDE RECORDS SUMMARY | 2024-09-08 17:33 | XMS_ITS | Referral Summary ---
Author Organization [facility] Address [address] [place] [address] Care Team Providers Care Flat Surfacer Name Role Phone Korey Coleman MD Primary [...] Route Frequency Start Date End Date Status [facility] atorvastatin (rrAD) tablet 20 mgIndications:Research study patient 20 mg oral Daily 02/06/2019 Active [facility] losartan (rrAD) tablet 25 mgIndications:Research study patient 25 mg oral Daily 02/06/2019 Active [facility] losartan (rrAD) tablet 25 mgIndications:Research study patient 25 mg oral Daily 03/12/2019 Active [facility] atorvastatin (rrAD) tablet 20 mgIndications:Research study patient 20 mg oral Daily 03/12/2019 Active [facility] atorvastatin (rrAD) tablet 20 mgIndications:Research study patient 20 mg oral Daily 04/15/2019 Active [facility] losartan (rrAD) tablet 25 mgIndications:Research study patient 25 mg oral Daily 04/15/2019 Active [facility] atorvastatin (rrAD) tablet 20 mgIndications:Research study patient 20 mg oral Daily 05/06/2019 Active [facility] losartan (rrAD) tablet 25 mgIndications:Research study patient 25 mg oral Daily 05/06/2019 Active [facility] losartan (rrAD) tablet 25 mgIndications:Research study patient 25 mg oral Daily 08/14/2019 Active [facility] atorvastatin (rrAD) tablet 20 mgIndications:Research study patient 20 mg oral Daily 08/14/2019 Active [facility] losartan (rrAD) tablet 25 mgIndications:Research study patient 25 mg oral Daily 10/28/2019 Active [facility] atorvastatin (rrAD) tablet 20 mgIndications:Research study patient 20 mg oral Daily 10/28/2019 Active [facility] losartan (rrAD) tablet 25 mgIndications:Research study patient 25 mg oral Daily 12/22/2019 Active [facility] atorvastatin (rrAD) tablet 20 mgIndications:Research study patient 20 mg oral Daily 12/22/2019 Active [facility] losartan (rrAD) tablet 25 mgIndications:Research study patient 25 mg oral Daily 03/17/2020 Active [facility] atorvastatin (rrAD) tablet 20 mgIndications:Research study patient 20 mg oral Daily 03/17/2020 Active [facility] losartan (rrAD) tablet 25 mgIndications:Research study patient 25 mg oral Daily 05/31/2020 Active [facility] atorvastatin (rrAD) tablet 20 mgIndications:Research study patient 20 mg oral Daily 05/31/2020 Active [facility] losartan (rrAD) tablet 50 mgIndications:Research study patient 50 mg oral Daily 08/18/2020 Active [facility] atorvastatin (rrAD) tablet 20 mgIndications:Research study patient 20 mg oral Daily 08/18/2020 Active [facility] losartan (rrAD) tablet 100 mgIndications:Research study patient 100 mg oral Daily 10/03/2020 Active [facility] losartan (rrAD) tablet 100 mgIndications:Research study patient 100 mg oral Daily 12/27/2020 Active [facility] atorvastatin (rrAD) tablet 20 mgIndications:Research study patient 20 mg oral Daily 12/27/2020 Active [facility] losartan (rrAD) tablet 100 mgIndications:Research study patient 100 mg oral Daily 02/17/2021 Active [facility] atorvastatin (rrAD) tablet 20 mgIndications:Research [...] (01/12/2020): Added automatically from request for surgery [id number] Sensorineural hearing loss ( SNHL) of left [...] SARS-CoV-2 Monovalent Vaccination (12+ Yrs) PURPLE 10/07/2020,09/16/2020 Social History Tobacco Use Types Packs/Day Years Used Date Smoking Tobacco: Never Smokeless Tobacco: Never Alcohol Use Standard Drinks/Week Comments Yes 0 (1 standard drink = 0.6 oz pur e alcohol) rarely Comments No Sex and Gender Information Value Date Recorded Sex Assigned at Not on file 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 Gender Identity Not on file Sexual Orientation Not on file Last Filed Vital Signs Vital Sign Reading [...] 03/02/2021 1:32 PM CDT Plan of Treatment Not on file Medical Devices Implanted Type Area Continuous Loft Operator Device Identifier Shelf Expiration Date Model / Serial / Lot [employer] A-4750.31 Aptus Trilock [id number] 10 Hole Left Distal Volar Radius Narrow - [id number] Implanted:Qty: 1 on 01/13/2020 by Stefan Owen MD at [facility] Left: Radius [employer] A-4750.31 / / [employer] A-5700.12 Aptus 2.5mm 12mm Cortical Screw Bone - [id number] Implanted:Qty: 1 on 01/13/2020 by Stefan Owen MD at [facility] Left: Radius [employer] A-5700.12 / / [employer] A-5750.20 2.5mm 20mm Lock Cortical Screw Bone - [id number] Implanted:Qty: 2 on 01/13/2020 by Stefan Owen MD at [facility] Left: Radius [employer] A-5750.20 / / [employer] A-5700.18 Aptus 2.5mm 18mm Cortical Screw Bone Titanium - [id number] Implanted:Qty: 1 on 01/13/2020 by Stefan Owen MD at [facility] Left: Radius [employer] A-5700.18 / / [employer] A-5750.08 Screw Bone 2.5mm 8mm Lock - [id number] Implanted:Qty: 1 on 01/13/2020 by Stefan Owen MD at [facility] Left: Radius [employer] A-5750.08 / / [employer] A-5750.14 Aptus 2.5mm 14mm Lock Cortical Screw Bone - [id number] Implanted:Qty: 1 on 01/13/2020 by Stefan Owen MD at [facility] Left: Radius [employer] A-5750.14 / / [...] and calcium. ??History of prior fracture. ? Continuous Loft Operator/Model: Greenphire A (S/N [id number]) CLINICAL INFORMATION: Current height: ??60 ??inches ? [...] PM T: ??04/23/2023 2:41 PM Report ID: [id number] Reading Location: ??[id number] Procedure Note Mirna Isbell MD - 04/23/2023 EXAM DESCRIPTION: DEXA AXIAL SKELETON BONE DENSITY 1 OR MORE SITES REASON FOR STUDY: 83 y/o year old F with given history of:Postmenopausal status. Patient takes vitamin-D and calcium. History of prior fracture. Continuous Loft Operator/Model: Greenphire A (S/N [id number]) CLINICAL INFORMATION: Current height: 60 inches Maximum [...] Mirna Isbell M.D. TW: TW Report ID: [id number] Reading Location: [place] [address] Korey Coleman MD IM DXA PROCEDURES Final Result from Last 3 Months or Most Recently Relevant to Health Maintenance Insurance MEDICARE [facility] MEDICARE SUPPLEMENT INSURANCE [place] ALLISON [id number] MEDICARE [facility] MEDICARE SUPPLEMENT INSURANCE MAR[place]N ALLISON [id number] MEDICARE [facility] MEDICARE SUPPLEMENT INSURANCE Care Teams Flat Surfacer Relationship Specialty Start Date End Date Korey Coleman MD [address] [address] PCP - General Internal Medicine 12/26/22
--- OUTSIDE RECORDS SUMMARY | 2024-09-08 17:33 | XMS_ITS | Referral Summary ---
Author Organization [facility] [employer] Address [address] [place] [address] Care Team Providers Care Hyperion Essbase Developer Name Role Phone Unavailable Primary Care Provider Unavailabl e Source Comments [facility],non-owned Affiliates and Associated Physician Practices is amultiple site organization consisting of ambulatory clinics and hospital sitesin [place], [place], [place] and [place]. This disclosure is being madepursuant to the Care Everywhere program and may not contain all information available regarding this patient. Last updated 18.[facility] [employer] Social History Tobacco Use Types Packs/Day Years Used Date Smoking Tobacco: Never Assessed Sex and Gender Information Value Date Recorded Sex Assigned at Not on file Gender Identity Not on file Sexual Orientation Not on file Plan of Treatment Not on file
--- NOTE | 2024-09-08 18:03 | ED_ITS ---
HPI - General Adult General Chief complaint: Fall <Ivania Thompson December, SILVICULTURE PROFESSOR - Last Filed: 09/12/24 15:15> Stated complaint: fell at home <Ivania Thompson December, SILVICULTURE PROFESSOR - Last Filed: 09/12/24 15:15> Time Seen by Provider: 09/08/24 18:03 <Ivania Thompson December, SILVICULTURE PROFESSOR - Last Filed: 09/12/24 15:15> Focused HPI: Cl Blount is an 84 y/o female who presents with reports of falling and hit her head on the floor. She feels that she lost her balance some how and fell back hit her head her head bounced and she layed there for a little bit and was able to get back up. She denies any LOC Denies any nausea/ vomiting No fever/chills - no vision changes GENERAL: Well-appearing, well-nourished, and in no acute distress. HEAD: Normocephalic, atraumatic. CHEST: Clear to auscultation. ?No respiratory distress. HEART: Regular rate and rhythm.? NEURO: ?Alert and oriented x3. Patient screened in triage and initial orders placed.? ?Additional care and disposition to be based upon?diagnostic testing and treatment. <Ivania Thompson December, SILVICULTURE PROFESSOR - Last Filed: 09/12/24 15:15> Related Data Home medications: Home Medications ?Medication ?Instructions ?Recorded ?Confirmed ?Last Taken ?Type aspirin 81 mg tablet,delayed 81 mg PO 3XW 08/14/19 06/22/24 Unknown History release (Aspir-) atorvastatin 20 mg tablet 20 mg PO HS 08/14/19 06/22/24 Unknown History calcium 250 mg (as 3 tablet PO QAM 08/14/19 06/22/24 Unknown History citrate)-vitamin D3 5 mcg (200 unit) tablet (Citracal Regular) docusate sodium 100 mg tablet 100 mg PO HS 08/14/19 06/22/24 Unknown History fluticasone propionate 50 1 spray intranasal DAILY PRN 08/14/19 06/22/24 Unknown History mcg/actuation nasal Congestion spray,suspension (Flonase Allergy Relief) lorazepam 0.5 mg tablet 0.5 mg PO HS PRN Insomnia 08/14/19 06/22/24 Unknown History losartan 25 mg tablet 25 mg PO DAILY 08/14/19 06/22/24 08/20/19 History 0530 melatonin 10 mg capsule 10 mg PO HS PRN Insomnia 08/14/19 06/22/24 Unknown His tory multivitamin (Multiple Vitamins 1 tablet PO DAILY 08/14/19 06/22/24 Unknown History tablet) simethicone 125 mg capsule (Gas-X 125 mg PO DAILY 08/14/19 06/22/24 Unknown History Extra Strength) hydrochlorothiazide 25 mg tablet 25 mg PO DAILY 01/23/24 06/22/24 Unknown History sertraline 100 mg tablet 100 mg PO DAILY 01/23/24 06/22/24 Unknown History <Ivania Thompson December,N - Last Filed: 09/12/24 15:15> Allergies/adverse reactions: Allergies Allergy/AdvReac Type Severity Reaction Status Date / Time Sulfa (Sulfonamide Allergy Mild Rash Verified 09/08/24 17:32 Antibiotics) <Ivania Thompson December,N - Last Filed: 09/12/24 15:15> [facility] Past Medical History Medical History: Medical History Anxiety Hyperlipidemia Hypertension <Ivania Thompson December,N - Last Filed: 09/12/24 15:15> Surgical History Surgical History: Surgical History History of hysterectomy History of surgery on right wrist <Ivania Thompson December, - Last Filed: 09/12/24 15:15> Social History Social History: Social History (Updated 06/22/24 @ 14:[address] [facility]) Smoking status: Never smoker Alcohol intake: current Alcohol use details: occasionally Substance use type: does not use Current Housing: Decline to Answer Concerned About Future Housing: Decline to Answer Difficulty Paying Gas/Electric Bills: Decline to Answer Difficulty Paying for Meds: Decline to Answer Currently Unemployed: Decline to Answer Education: Decline to Answer Difficulty w/ Childcare or Family Care: Decline to Answer Living arrangements: alone Occupation/Education: retired Gender identity (if verbalized by the patient): Female <Ivania Thompson December,N - Last Filed: 09/12/24 15:15> Exam Narrative: APPEARANCE: No apparent distress. Well-appearing in A&O x4 Head: atraumatic. No hematoma or laceration to back of the head EYES: EOMI, NOSE: Atraumatic NECK: Trachea midline RESPIRATORY: No increased rate of breathing CTAB CARDIOVASCULAR: RRR, ABDOMINAL: Non-distended MUSCULOSKELETAl: No obvious deformities NEURO: Alert. Cranial nerves 2-12 grossly intact. Sensation light touch, motor function cerebellar function intact for 4 extremities. Gait exam was normal. SKIN:: Warm, dry. Normal color PSYCHIATRIC: Normal affect <Geraldo Aguero MD - Last Filed: 09/08/24 20:57> Course Vital Signs Vital signs: Vital Signs Temperature 36.4 C 09/08/24 17:32 Pulse Rate 71 09/08/24 17:32 Respiratory Rate 20 09/08/24 17:32 Blood Pressure 177/69 H 09/08/24 17:32 Pulse Oximetry 100 09/08/24 17:32 Oxygen Delivery Room Air 09/08/24 17:32 Temperature 36.7 C 09/08/24 21:10 Pulse Rate 74 09/08/24 21:10 Respiratory Rate 17 09/08/24 21:10 Blood Pressure 165/88 H 09/08/24 21:10 Pulse Oximetry 97 09/08/24 21:10 Oxygen Delivery Room Air 09/08/24 17:32 <Ivania Ragland APRN - Last Filed: 09/12/24 15:15> Vital Signs Temperature 36.4 C 09/08/24 17:32 Pulse Rate 71 09/08/24 17:32 Respiratory Rate 20 09/08/24 17:32 Blood Pressure 177/69 H 09/08/24 17:32 Pulse Oximetry 100 09/08/24 17:32 Oxygen Delivery Room Air 09/08/24 17:32 Temperature 36.7 C 09/08/24 21:10 Pulse Rate 74 09/08/24 21:10 Respiratory Rate 17 09/08/24 21:10 Blood Pressure 165/88 H 09/08/24 21:10 Pulse Oximetry 97 09/08/24 21:10 Oxygen Delivery Room Air 09/08/24 17:32 <Geraldo Aguero MD - Last Filed: 09/08/24 20:57> Medical Decision Making MDM Narrative Medical decision making narrative: -Course: 84-year-old female presenting after a fall. She has no complaints. Her CT head and C-spine were negative. Neurologic exam is normal. Patient was discharged. <Geraldo Aguero MD - Last Filed: 09/08/24 20:57> Vital Signs Vital Signs: Vital Signs Temperature 36.4 C 09/08/24 17:32 Pulse Rate 71 09/08/24 17:32 Respiratory Rate 20 09/08/24 17:32 Blood Pressure 177/69 H 09/08/24 17:32 Pulse Oximetry 100 09/08/24 17:32 Oxygen Delivery Room Air 09/08/24 17:32 Temperature 36.7 C 09/08/24 21:10 Pulse Rate 74 09/08/24 21:10 Respiratory Rate 17 09/08/24 21:10 Blood Pressure 165/88 H 09/08/24 21:10 Pulse Oximetry 97 09/08/24 21:10 Oxygen Delivery Room Air 09/08/24 17:32 <Ivania Ragland SILVICULTURE PROFESSOR - Last Filed: 09/12/24 15:15> Vital Signs Temperature 36.4 C 09/08/24 17:32 Pulse Rate 71 09/08/24 17:32 Respiratory Rate 20 09/08/24 17:32 Blood Pressure 177/69 H 09/08/24 17:32 Pulse Oximetry 100 09/08/24 17:32 Oxygen Delivery Room Air 09/08/24 17:32 Temperature 36.7 C 09/08/24 21:10 Pulse Rate 74 09/08/24 21:10 Respiratory Rate 17 09/08/24 21:10 Blood Pressure 165/88 H 09/08/24 21:10 Pulse Oximetry 97 09/08/24 21:10 Oxygen Delivery Room Air 09/08/24 17:32 <Geraldo Aguero MD - Last Filed: 09/08/24 20:57> Discharge Plan Discharge Clinical Impression: Fall <Ivania Ragland APRN - Last Filed: 09/12/24 15:15> Patient Disposition: Home, Self-Care <Ivania Ragland SILVICULTURE PROFESSOR - Last Filed: 09/12/24 15:15> Condition: Stable <Ivania Ragland SILVICULTURE PROFESSOR - Last Filed: 09/12/24 15:15> Instructions: Antibiotic Form, Fall Prevention (ED) <Ivania J. May, SILVICULTURE PROFESSOR - Last Filed: 09/12/24 15:15> Additional Instructions: You seen in the ED after a fall. Your CT of the head and neck did not show any serious injuries. If you develop any new or worsening symptoms please return to ED for re-evaluation. <Ivania Ragland SILVICULTURE PROFESSOR - Last Filed: 09/12/24 15:15> Patient Language: [place] <Ivania Ragland SILVICULTURE PROFESSOR - Last Filed: 09/12/24 15:15> Prescriptions: No Action hydrochlorothiazide 25 mg tablet 25 mg PO DAILY sertraline 100 mg tablet 100 mg PO DAILY multivitamin [Multiple Vitamins] Tablet 1 tablet PO DAILY atorvastatin 20 mg Tablet 20 mg PO HS simethicone [Gas-X Extra Strength] 125 mg Capsule 125 mg PO DAILY aspirin [Aspir-81] 81 mg Tablet,Delayed Release (Dr/Ec) 81 mg PO 3XW lorazepam 0.5 mg tablet 0.5 mg PO HS PRN (Reason: Insomnia) losartan 25 mg Tablet 25 mg PO DAILY fluticasone propionate [Flonase Allergy Relief] 50 mcg/actuation [place],Suspension 1 spray INTRANASAL DAILY PRN (Reason: Congestion) docusate sodium 100 mg Tablet 100 mg PO HS calcium citrate-vitamin D3 [Citracal Regular] 250 mg calcium- 200 unit Tablet 3 tablet PO QAM melatonin 10 mg Capsule 10 mg PO HS PRN (Reason: Insomnia) <Ivania Ragland SILVICULTURE PROFESSOR - Last Filed: 09/12/24 15:15> Follow-up/Referrals: Jared,Korey Roberts MD [Primary Care Provider] - <Ivania Ragland, SILVICULTURE PROFESSOR - Last Filed: 09/12/24 15:15>
--- OUTSIDE RECORDS SUMMARY | 2024-09-08 21:03 | XMS_ITS | Patient Health Summary ---
Author Organization [facility] Address [facility] [place] [address] Care Team Providers Care Teen Counselor Name Role Phone Unavailable Primary Care Provider Unavailabl e Note from [facility],non-owned Affiliates and Associated Physician Practices is amultiple site organization consisting of ambulatory clinics and hospital sitesin [place], [place], [place] and [place]. This disclosure is being madepursuant to the Care Everywhere program and may not contain all information available regarding this patient. Last updated 18.[facility] Social History Tobacco Use Types Packs/Day Years Used Date Smoking Tobacco: Never Assessed Sex and Gender Information Value Date Recorded Sex Assigned at Not on file Gender Identity Not on file Sexual Orientation Not on file Procedures * DERMATOPATHOLOGY(Performed 11/15/2020) Results * DERMATOPATHOLOGY (11/15/2020 3:33 AM CDT) Case Report Dermatopathology Report ? Case: [id number] ? Authorizing Provider: ??Jeronimo Murray MD ?Collected: ? 11/15/2020 03:33 AM ? Ordering Location: ? [facility] Care DermPath Lab ?Received: [...] vs lentigo vs LM vs BCCA. Path# [id number]. 3:52 PM CDT DERMATOPATHOLOGY LABORATORY Gross Description Specimen A: Received is one formalin filled container labeled with the patient's name and designated left post deltoid. The specimen consists of a shave biopsy measuring [id number]. Jar 0. 3:52 PM CDT DERMATOPATHOLOGY LABORATORY [...] characteristic determined by the Dermatopathology Laboratory at [facility], directed by Dr. Verónica Mendes. These tests need not be, and therefore are not, approved by the [place] Food and Drug Administration. The tests are used for clinical purposes. Billing Codes Specimen Charges Stain Charges 00430 1 34357 1 1 3:52 PM CDT DERMATOPATHOLOGY LABORATORY Embedded Images 1 3:52 PM CDT DERMATOPATHOLOGY LABORATORY Pathology/Cytolo gy TISSUE SPECIMEN FROM SKIN / Unknown 11/15/2020 3:33 AM CDT 11/17/2020 6:12 AM CDT Jeronimo Murray MD LAB - PATHOLOGY/CYTO LOGY ORDERABLES DERMATOPATHOLOGY LABORATORY [facility] - Department of Dermatology [facility] [address] [place] [address], [address] [phone]
--- OUTSIDE RECORDS SUMMARY | 2024-09-08 21:03 | XMS_ITS | Referral Summary ---
Author Organization [facility] [email or web address] Address [address] [place] [address] Care Team Providers Care Pipeline Integrity Engineer Name Role Phone Unavailable Primary Care Provider Unavailabl e Source Comments [facility],non-owned Affiliates and Associated Physician Practices is amultiple site organization consisting of ambulatory clinics and hospital sitesin [place], [place], [place] and [place]. This disclosure is being madepursuant to the Care Everywhere program and may not contain all information available regarding this patient. Last updated 18.[facility] [email or web address] Social History Tobacco Use Types Packs/Day Years Used Date Smoking Tobacco: Never Assessed Sex and Gender Information Value Date Recorded Sex Assigned at Not on file Gender Identity Not on file Sexual Orientation Not on file Plan of Treatment Not on file
--- OUTSIDE RECORDS SUMMARY | 2024-09-08 21:04 | XMS_ITS | Clinical Summary ---
Author Organization [facility] [email or web address] Address [address] [facility] [place] [address] Care Team Providers Care Towel Hemmer Name Role Phone Unavailable Primary Care Provider Unavailabl e Source Comments [facility] [email or web address],non-owned Affiliates and Associated Physician Practices is amultiple site organization consisting of ambulatory clinics and hospital sitesin [place], [place] and [place]. This disclosure is being madepursuant to the Care Everywhere program and may not contain all information available regarding this patient. Last updated 18.[facility] [email or web address] Social History Tobacco Use Types Packs/Day Years [...]
--- OUTSIDE RECORDS SUMMARY | 2024-09-08 21:04 | XMS_ITS | Encounter Summary ---
Author Organization [facility] Address [address] [place] [place] [address] Care Team Providers Care Lead Software Architect Name Role Phone Unavailable Primary Care Provider Unavailabl e Encounter Details Date Type Department Care Team (Late st Contact Info) Description 11/17/2020 Lab Requisition [facility] [address] [facility] [place] [id number] Jeronimo Murray MD [address] [facility] [place] [address] Social History Tobacco Use Types [...] CDT) Case Report Dermatopathology Report ? Case: [id number] ? Authorizing Provider: ??Jeronimo Murray MD ?Collected: [...] vs lentigo vs LM vs BCCA. Path# [id number]. 3:52 PM T DERMATOPATHOLOGY LABORATORY Gross Description Specimen A: Received is one formalin filled container labeled with the patient's name and designated left post deltoid. The specimen consists of a shave biopsy measuring [id number]. Jar 0. 3:52 PM T DERMATOPATHOLOGY LABORATORY [...] characteristic determined by the Dermatopathology Laboratory at [facility], directed by Dr. Verónica Mendes. These tests need not be, and therefore are not, approved by the [place] Food and Drug Administration. The tests are used for clinical purposes. Billing Codes Specimen Charges Stain Charges 65531 1 [id number] 1 1 3:52 PM CDT DERMATOPATHOLOGY LABORATORY Embedded Images 1 3:52 PM CDT DERMATOPATHOLOGY LABORATORY Pathology/Cytolo gy TISSUE SPECIMEN FROM SKIN / Unknown 11/15/2020 3:33 AM CDT 11/17/2020 6:12 AM CDT Jeronimo Murray MD LAB - PATHOLOGY/CYTO LOGY ORDERABLES DERMATOPATHOLOGY LABORATORY [facility] - Department of Dermatology [address], [address] [phone] documented in this encounter Visit Diagnoses Not on filedocumented in this encounter
--- OUTSIDE RECORDS SUMMARY | 2024-09-08 21:04 | XMS_ITS | Clinical Summary ---
Author Organization [facility] Address [address] [place] [address]. [place], [place] [id number] [place] [id number] Care Team Providers Care Distribution Field Engineer Name Role Phone Unavailable Primary Care [...]
[2024-09-08 21:10] VITALS: BP 165/88; PULSE 74; RESP 17; TEMP 36.7; O2SAT 97
== END 2024-09-08 21:11 | disposition home or self-care (01) ==
LOC: ANHED 21:01
PROVIDERS: Emergency Provider Emergency Medicine; PCP Emergency Medicine
DX: F41.9 Anxiety disorder, unspecified (principal); E78.5 Hyperlipidemia, unspecified; I10 Essential (primary) hypertension; W01.0XXA Fall on same level from slipping, tripping and stumbling without subsequent striking against object, initial encounter
CPT/HCPCS: 70450; 72125; 99284